=== PATIENT | female | born 1985 | race Asian ===

== ENCOUNTER 2016-10-29 20:00 | Inpatient (IN) | payer OTHER ==
[2016-10-29 21:26] LABS: BASOPHIL 0.6 % (0-2.0); EOSINOPHIL 0.8 % (0-4.5); MCH 28.9 pg (25.7-33.7); MCHC 33.7 g/dl (32.0-36.0); MEAN CELL VOLUME 85.9 fl (80-96); MEAN PLT VOLUME 9.7 fl (7.5-11.1); NEUTROPHILS 69.7 % (42.8-82.8); PLATELET COUNT 187 K/MM3 (134-434); RDW 14.3 % (11.6-15.6); WHITE BLOOD COUNT 10.5 K/mm3 (4.0-10.0)
[2016-10-29] MEDS ORDERED: BENZOCAINE 20% 57 GM BOTTLE TP PRN (21:41)
[2016-10-29] MEDS ORDERED: METHYLERGONOVINE MALEATE 0.2 MG/1 ML AMP IM PRN (21:41)
[2016-10-29] MEDS ORDERED: BENZOCAINE 28 GM HEMORRHOIDAL OINTMENT TP PRN (21:41)
[2016-10-29] MEDS ORDERED: BISACODYL 10 MG SUPP.RECT RC PRN (21:41)
[2016-10-29] MEDS ORDERED: WITCH HAZEL 50% (TUCKS) 40 PAD/JAR PAD TP PRN (21:41)
[2016-10-29] MEDS ORDERED: OXYTOCIN 20 UNITS in 0.9% NS 1,000 ML IV SCH (21:45)
--- NOTE | 2016-10-29 21:46 | HP ---
Admitting History and Physical - Admission Chief Complaint: labor pains History of Present Illness: 31 y/o at term returns with complaints of labor pains. 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: No: Alzheimer's, CVA, Dementia, Migraine, Multiple Sclerosis, Peripheral Neuropathy, Parkinson's, Seizure, Syncope, TIA, Vertigo, Other Cardiovascular: No: AFIB, Aneurysm, Aortic Insufficiency, Aortic Stenosis, CAD, CHF, Deep Vein Thrombosis, HTN, Hyperlipdemia, MS, Mitral Insufficiency, Mitral Stenosis, Murmur, Pulmonary Hypertension, Other Pulmonary: No: Asthma, Bronchitis, Cancer, COPD, O2 Dependent, Pneumonia, Previously Intubated, Pulmonary Embolus, Pulmonary Fibrosis, Sleep Apnea, Other Gastrointestinal: No: Ascites, Cancer, Constipation, Crohn's Disease, Diverticulitis, Diverticulosis, Esophageal Varices, Gastritis, GERD, GI Bleed, Hemorrhoids, Hiatal Hernia, Inflamatory Bowel Disease, Irritable Bowel Disease, Pancreatitis, Peptic Ulcer Disease, Ulcerative Colitis, Other Hepatobiliary: No: Cirrhosis, Cholelithiasis, Cholecystitis, Choledocholithiasis , Hepatitis A, Hepatitis B, Hepatitis C, Other Reproductive: No: Ectopic , Endometriosis, Fibroids, PID, Polycystic Ovary Syndrome, Postmenopausal, Other ...LMP: 10/05/15 Heme/Onc: No: Anemia, B12 Deficiency, Bleeding Disorder, Cancer, Current Chemotherapy, Current Radiation Therapy, Hemochromatosis, Hypercoaguable State, Myeloproliferative Synd, Sickle Cell Disease, Sickle Cell Trait, Thrombocytopenia, Other Infectious Disease: No: AIDS, C-Diff, Herpes Zoster, HIV, MRSA, STD's, Tuberculosis, VREF, Other Psych: No: Addictions, Anxiety, Bipolar, Depression, Panic, Psychosis, Schizophrenia, Other Rheumatology: No: Fibromyalgia, Gout, Lupus, Rheumatoid Arthritis, Sarcoidosis, Vasculitis, Other ENT: No: Allergic Rhinitis, Sinusitis, Other Endocrine: No: [place]'s Disease, [place]'s Disease, Diabetes Insipidus, Diabetes Mellitus, Hyperparathyroidism, Hyperthyroidism, Hypothyroidism, Osteopenia, SIADH, Other Dermatology: No: Basal Cell, Cellulitis, Eczema, Melanoma, Psoriasis, Squamous Cell, Other - Smoking History Smoking history: Never smoked Have you smoked in the past 12 months: No - Alcohol/Substance Use Hx Alcohol Use: No - Social 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 History of Recent Travel: No Home Medications - Allergies Allergies/Adverse Reactions: Allergies Allergy/AdvReac Type Severity Reaction Status Date / Time No Known Drug Allergies Allergy Verified 10/29/16 10:04 - Home Medications Home Medications: Ambulatory Orders Ferrous Sulfate [Feosol] 325 mg PO BID #60 tablet 09/21/16 Pnv95/Ferrous Fumarate/FA [ Vitamin Tablet] 1 each PO DAILY 09/21/16 Review of Systems - Review of Systems Constitutional: reports: No Symptoms Eyes: reports: No Symptoms HENT: reports: No Symptoms Neck: reports: No Symptoms Cardiovascular: reports: No Symptoms Respiratory: reports: No Symptoms Gastrointestinal: reports: No Symptoms Genitourinary: reports: No Symptoms Integumentary: reports: No Symptoms Neurological: reports: No Symptoms Endocrine: reports: No Symptoms Hematology/Lymphatic: reports: No Symptoms Psychiatric: reports: No Symptoms Physical Examination Constitutional: Yes: Well Nourished Eyes: Yes: WNL HENT: Yes: WNL Neck: Yes: WNL Cardiovascular: Yes: WNL Respiratory: Yes: WNL Gastrointestinal: Yes: WNL ...Rectal Exam: Yes: WNL Renal/: Yes: WNL Breast(s): Yes: WNL Musculoskeletal: Yes: WNL Extremities: Yes: WNL ...Motor Strength: WNL Psychiatric: Yes: WNL Labs: CBC, BMP 10/29/16 20:30 Assessment/Plan as above admit labs Imminent delivery
[2016-10-29 21:48] LABS: ANION GAP 10 (8-16); CALCIUM 9.2 mg/dL (8.5-10.1); CO2 20 mmol/L (21-32); CREATININE 0.6 mg/dL (0.55-1.02); GLUCOSE,RANDOM 70 mg/dL (74-106)
[2016-10-29] MEDS: ACETAMINOPHEN 325 MG TABLET (FP) PO PRN (21:50)
[2016-10-29] MEDS: IBUPROFEN 600 MG TABLET (FP) PO PRN (21:50)
[2016-10-29 21:54] LABS: INR 0.95 (0.82-1.09); PROTHROMBIN TIME (PATIENT) 10.4 SEC (9.98-11.88)
[2016-10-29 21:56] LABS: ACTIVATED PTT 29.4 SECONDS (26.9-34.4)
[2016-10-29 22:22] VITALS: BMI 18.9
[2016-10-30] MEDS: ACETAMINOPHEN 325 MG TABLET (FP) PO PRN ×3 (01:56→18:36)
[2016-10-30] MEDS: IBUPROFEN 600 MG TABLET (FP) PO PRN ×3 (01:57→18:36)
--- NOTE | 2016-10-30 05:33 | PN ---
Post Progress Note Post Day: 1 Type of Delivery: Vital Signs: Vital Signs Temperature 97.9 F 10/29/16 23:45 Pulse Rate 74 10/29/16 23:45 Respiratory Rate 18 10/29/16 23:45 Blood Pressure 115/70 10/29/16 23:45 O2 Sat by Pulse Oximetry (%) 99 10/29/16 22:30 Breast Exam: Yes: Soft Uterus: Yes: Fundus Firm Abdomen/GI: Yes: Abdomen soft Lochia: Yes: Rubra Lochia, amount: Small Perineum: Yes: Intact Activity: Ambulating - Labs Labs: CBC WBC 10.5 K/mm3 (4.0-10.0) H D 10/29/16 20:30 RBC 3.96 M/mm3 (3.60-5.2) 10/29/16 20:30 Hgb 11.5 GM/dL (10.7-15.3) D 10/29/16 20:30 Hct 34.0 % (32.4-45.2) 10/29/16 20:30 MCV 85.9 fl (80-96) 10/29/16 20:30 MCH 28.9 pg (25.7-33.7) 10/29/16 20:30 MCHC 33.7 g/dl (32.0-36.0) 10/29/16 20:30 RDW 14.3 % (11.6-15.6) 10/29/16 20:30 Plt Count 187 K/MM3 (134-434) 10/29/16 20:30 MPV 9.7 fl (7.5-11.1) 10/29/16 20:30 Neutrophils % 69.7 % (42.8-82.8) D 10/29/16 20:30 Lymphocytes % 22.1 % (8-40) D 10/29/16 20:30 Monocytes % 6.8 % (3.8-10.2) 10/29/16 20:30 Eosinophils % 0.8 % (0-4.5) D 10/29/16 20:30 Basophils % 0.6 % (0-2.0) 10/29/16 20:30 Assessment/Plan doing well no issues contine care
[2016-10-30 08:25] LABS: BASOPHIL 0.4 % (0-2.0); EOSINOPHIL 1.2 % (0-4.5); MCH 28.7 pg (25.7-33.7); MCHC 33.2 g/dl (32.0-36.0); MEAN CELL VOLUME 86.4 fl (80-96); MEAN PLT VOLUME 9.1 fl (7.5-11.1); NEUTROPHILS 70.5 % (42.8-82.8); PLATELET COUNT 141 K/MM3 (134-434); RDW 14.2 % (11.6-15.6); WHITE BLOOD COUNT 9.3 K/mm3 (4.0-10.0)
[2016-10-30] MEDS ORDERED: DIPHTH,PERTUSS(ACELL),TET 0.5 ML DISP.SYRIN IM ONE (10:00)
[2016-10-30] MEDS ORDERED: SENNOSIDES/DOCUSATE COMBO (SENNA PLUS) TABLET (UD) PO PRN (22:00)
--- NOTE | 2016-10-31 01:46 | PN ---
Post Progress Note - Subjective Subjective: declines exam Post Day: 2 Type of Delivery: Vital Signs: Vital Signs Temperature 97.4 F L 10/30/16 20:52 Pulse Rate 79 10/30/16 20:52 Respiratory Rate 18 10/30/16 20:52 Blood Pressure 100/62 10/30/16 20:52 O2 Sat by Pulse Oximetry (%) 99 10/29/16 22:30 Breast Exam: Yes: Soft Lochia, amount: Small Perineum: Yes: Intact - Labs Labs: CBC WBC 9.3 K/mm3 (4.0-10.0) 10/30/16 07:30 RBC 3.09 M/mm3 (3.60-5.2) L D 10/30/16 07:30 Hgb 8.9 GM/dL (10.7-15.3) L D 10/30/16 07:30 Hct 26.7 % (32.4-45.2) L D 10/30/16 07:30 MCV 86.4 fl (80-96) 10/30/16 07:30 MCH 28.7 pg (25.7-33.7) 10/30/16 07:30 MCHC 33.2 g/dl (32.0-36.0) 10/30/16 07:30 RDW 14.2 % (11.6-15.6) 10/30/16 07:30 Plt Count 141 K/MM3 (134-434) D 10/30/16 07:30 MPV 9.1 fl (7.5-11.1) 10/30/16 07:30 Neutrophils % 70.5 % (42.8-82.8) 10/30/16 07:30 Lymphocytes % 21.4 % (8-40) 10/30/16 07:30 Monocytes % 6.5 % (3.8-10.2) 10/30/16 07:30 Eosinophils % 1.2 % (0-4.5) 10/30/16 07:30 Basophils % 0.4 % (0-2.0) 10/30/16 07:30 Assessment/Plan continue care dc home today
[2016-10-31] MEDS: ACETAMINOPHEN 325 MG TABLET (FP) PO PRN (08:04)
[2016-10-31] MEDS: IBUPROFEN 600 MG TABLET (FP) PO PRN (08:05)
[2016-10-31 09:31] VITALS: BP 108/66; PULSE 73; TEMP 98
== END 2016-10-31 12:35 | disposition home or self-care (01) | DRG 560 ==
LOC: JLDR 20:00 → J3W 23:15
PROVIDERS: ADMIT Obstetrics & Gynecology; ATTEND Obstetrics & Gynecology
PROC: 10E0XZZ Delivery of Products of Conception, External Approach (ICD-10-PCS; principal; 2016-10-29)
DX: O80 Encounter for full-term uncomplicated delivery (principal); Z3A.38 38 weeks gestation of pregnancy; Z37.0 Single live birth
CPT/HCPCS: 36415; 59409; 80048; 85025; 85610; 85730; 86593; 86850; 86900; 86901; 90715

== ENCOUNTER 2018-02-23 22:23 | Emergency (ER) | payer OTHER ==
[2018-02-23 22:32] VITALS: BP 128/81; PULSE 66; TEMP 97.5; BMI 17.2
[2018-02-23 22:53] LABS: HCG,QUALITATIVE URINE Negative
[2018-02-23 22:55] LABS: URINE APPEARANCE Clear; URINE BILIRUBIN Negative (NEGATIVE); URINE COLOR Yellow; URINE GLUCOSE (UA) Negative (NEGATIVE); URINE KETONE Negative (NEGATIVE); URINE LEUK ESTERASE Negative (NEGATIVE); URINE NITRITE Negative (NEGATIVE); URINE PROTEIN Negative (NEGATIVE); URINE UROBILINOGEN 0.2 (0.2-1.0)
[2018-02-23] MEDS ORDERED: SODIUM CHLORIDE 0.9% 1000 ML INFUS.BAG IV ONE (22:59)
[2018-02-23] MEDS ORDERED: ACETAMINOPHEN 1000 MG/100 ML VIAL (NON FORMULARY) IVPB ONE (22:59)
[2018-02-23 23:17] LABS: BASO % 0.8 % (0-2.0); EOS % 5.6 % (0-4.5); HEMATOCRIT 35.8 % (32.4-45.2); HEMOGLOBIN 11.8 GM/dl (10.7-15.3); LYMPH % 43.8 % (8-40); MCH 28.6 pg (25.7-33.7); MEAN CELL VOLUME 86.5 fl (80-96); MEAN PLT VOLUME 8.6 fl (7.5-11.1); MONO % 8.3 % (3.8-10.2); NEUT % 41.5 % (42.8-82.8); PLATELET COUNT 246 K/MM3 (134-434); RBC 4.14 M/mm3 (3.60-5.2); RDW 17.9 % (11.6-15.6); WHITE BLOOD COUNT 6.3 K/mm3 (4.0-10.8)
[2018-02-23 23:25] LABS: URINE BACTERIA 1+ /hpf (NEGATIVE); URINE WBC 0-2 (0-5)
[2018-02-23] MEDS ORDERED: ACETAMINOPHEN INJECTION 100 ML IVPB ONE (23:30)
[2018-02-23 23:31] LABS: ALBUMIN 4.1 g/dl (3.5-5.0); ALK PHOS 38 U/L (32-92); ANION GAP 5 MMOL/L (8-16); BILIRUBIN,TOTAL 0.4 mg/dl (0.2-1.0); BLOOD UREA NITROGEN 15 mg/dl (7-18); CALCIUM 9.3 mg/dl (8.4-10.2); CHLORIDE 104 mmol/L (98-107); CO2 26 mmol/L (22-28); CREATININE 0.6 mg/dl (0.6-1.3); GLUCOSE,RANDOM 101 mg/dl (74-106); POTASSIUM 3.6 mmol/L (3.5-5.1); SGOT/AST 23 U/L (10-42); SGPT/ALT 29 U/L (10-40); SODIUM 135 mmol/L (136-145); TOT PROT 7.9 g/dl (6.4-8.3)
--- NOTE | 2018-02-23 23:41 | PDOC ---
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 Patient describes her abdominal pain as intermittent for the past 6 years radiating to her mid- back. Patient endorses associated nausea, dizziness, subjective fevers, and body aches. Patient is sexually active without protection, with one partner. She denies recent diarrhea or constipation. She denies recent dysuria or hematuria. She denies recent chest pain or shortness of breath. Allergies: NKA Past surgical history: None reported. Social history: Nonsmoker. Denies EtOH use and recreational drug use. LMP: 03/16 <Rafael Hughes - Last Filed: 02/23/18 23:56> <Donnie Gould - Last Filed: 02/24/18 01:54> - General Chief Complaint: Lightheaded Stated Complaint: PAIN, DIZZINESS Time Seen by Provider: 02/23/18 22:28 Past History <Rafael Hughes - Last Filed: 02/23/18 23:56> - Past Medical History Asthma: No Cancer: No Cardiac Disorders: No COPD: No Diabetes: No HTN: No Seizures: No Thyroid Disease: No - Reproductive History (#): 6 Para: 4 Spontaneous : 1 - Suicide/Smoking/Psychosocial Hx Smoking History: Never smoked Have you smoked in the past 12 months: No Hx Alcohol Use: No Drug/Substance Use Hx: No Substance Use Type: None Hx Substance Use Treatment: No <Donnie Gould - Last Filed: 02/24/18 01:54> - Past Medical History Allergies/Adverse Reactions: Allergies Allergy/AdvReac Type Severity Reaction Status Date / Time No Known Drug Allergies Allergy Verified 11/21/17 21:15 Home Medications: Ambulatory Orders NK [No Known Home Medication] 02/23/18 Review of Systems - Review of Systems Able to Perform ROS?: Yes Comments:: 02/23/18 23:53 ROS: A complete review of 10 out of 10 review of systems is taken and is negative apart from what is previously mentioned below and in the HPI. <Rafael Hughes - Last Filed: 02/23/18 23:56> *Physical Exam - Vital Signs Last Vital Signs Temp Pulse Resp BP Pulse Ox 97.5 F L 66 16 128/81 100 02/23/18 22:29 02/23/18 22:29 02/23/18 22:29 02/23/18 22:29 02/23/18 22:29 - Physical Exam Comments: 02/23/18 23:54 Vitals: Triage vital signs reviewed General Appearance: No acute distress, well nourished, well developed Head: Atraumatic Neck: Supple; No nuchal rigidity Chest Wall: Nontender Cardiac: Regular rate and rhythm, no murmurs, no rubs, no gallops Lungs: Clear to auscultation bilateral, good air movement bilaterally +Abdomen: Left CVA tenderness. Left quadrant abdominal tenderness. Soft, nondistended, normal bowel sounds +Genitourinary: Mild left sided adnexal tenderness. Rectal: Exam deferred Extremities: Full range of motion to all extremities, no cyanosis, clubbing, or edema Skin: Warm and dry, no rashes or lesions, no rash, no petechiae Neuro: AOX3; Cranial Nerves 2-12 grossly intact, Strength intact to all extremities, Sensation intact to all extremities, gait normal Psych: Normal mood, normal affect <Rafael Hughes - Last Filed: 02/23/18 23:56> - Vital Signs Last Vital Signs Temp Pulse Resp BP Pulse Ox 97.5 F L 66 16 128/81 100 02/23/18 22:29 02/23/18 22:29 02/23/18 22:29 02/23/18 22:29 02/23/18 22:29 <Donnie Gould - Last Filed: 02/24/18 01:54> Moderate Sedation - Procedure Monitoring Vital Signs: Procedure Monitoring Vital Signs Temperature 97.5 F L 02/23/18 22:29 Pulse Rate 66 02/23/18 22:29 Respiratory Rate 16 02/23/18 22:29 Blood Pressure 128/81 02/23/18 22:29 O2 Sat by Pulse Oximetry (%) 100 02/23/18 22:29 <Rafael Hughes - Last Filed: 02/23/18 23:56> - Procedure Monitoring Vital Signs: Procedure Monitoring Vital Signs Temperature 97.5 F L 02/23/18 22:29 Pulse Rate 66 02/23/18 22:29 Respiratory Rate 16 02/23/18 22:29 Blood Pressure 128/81 02/23/18 22:29 O2 Sat by Pulse Oximetry (%) 100 02/23/18 22:29 <Donnie Gould - Last Filed: 02/24/18 01:54> ED Treatment Course - LABORATORY CBC & Chemistry Diagram: 02/23/18 23:05 02/23/18 23:05 - ADDITIONAL ORDERS Additional order review: Laboratory Results 02/23/18 02/23/18 23:05 22:45 Sodium 135 L Potassium 3.6 Chloride 104 Carbon Dioxide 26 Anion Gap 5 L BUN 15 Creatinine 0.6 Creat Clearance w eGFR > 60 Random Glucose 101 Calcium 9.3 Total Bilirubin 0.4 AST 23 D ALT 29 Alkaline Phosphatase 38 Total Protein 7.9 Albumin 4.1 Urine Color Yellow Urine Appearance Clear Urine pH 6.0 Ur Specific [place] >= 1.030 Urine Protein Negative Urine Glucose (UA) Negative Urine Ketones Negative Urine Blood Trace-intact H Urine Nitrite Negative Urine Bilirubin Negative Urine Urobilinogen 0.2 Ur Leukocyte Esterase Negative Urine RBC 2-5 Urine WBC 0-2 Urine Bacteria 1+ Urine HCG, Qual Negative 02/23/18 23:05 RBC 4.14 MCV 86.5 MCHC 33.0 RDW 17.9 H D MPV 8.6 Neutrophils % 41.5 L Lymphocytes % 43.8 H Monocytes % 8.3 Eosinophils % 5.6 H Basophils % 0.8 - Medications Given in the ED: ED Medications Discontinued Medications Generic Name Dose Route Start Last Admin Trade Name Jolie PRN Reason Stop Dose Admin Acetaminophen 1,000 mg 02/23/18 22:59 02/23/18 23:35 Ofirmev Injection - IVPB 02/23/18 23:00 1,000 mg ONCE ONE Administration Sodium Chloride 1,000 ml 02/23/18 22:59 02/23/18 23:09 Normal Saline - IV 02/23/18 23:00 1,000 ml ONCE ONE Administration <Rafael Hughes - Last Filed: 02/23/18 23:56> - LABORATORY CBC & Chemistry Diagram: 02/23/18 23:05 02/23/18 23:05 - ADDITIONAL ORDERS Additional order review: Laboratory Results 02/23/18 02/23/18 23:05 22:45 Sodium 135 L Potassium 3.6 Chloride 104 Carbon Dioxide 26 Anion Gap 5 L BUN 15 Creatinine 0.6 Creat Clearance w eGFR > 60 Random Glucose 101 Calcium 9.3 Total Bilirubin 0.4 AST 23 D ALT 29 Alkaline Phosphatase 38 Total Protein 7.9 Albumin 4.1 Urine Color Yellow Urine Appearance Clear Urine pH 6.0 Ur Specific [place] >= 1.030 Urine Protein Negative Urine Glucose (UA) Negative Urine Ketones Negative Urine Blood Trace-intact H Urine Nitrite Negative Urine Bilirubin Negative Urine Urobilinogen 0.2 Ur Leukocyte Esterase Negative Urine RBC 2-5 Urine WBC 0-2 Urine Bacteria 1+ Urine HCG, Qual Negative 02/23/18 23:05 RBC 4.14 MCV 86.5 MCHC 33.0 RDW 17.9 H D MPV 8.6 Neutrophils % 41.5 L Lymphocytes % 43.8 H Monocytes % 8.3 Eosinophils % 5.6 H Basophils % 0.8 - Medications Given in the ED: ED Medications Discontinued Medications Generic Name Dose Route Start Last Admin Trade Name Freq PRN Reason Stop Dose Admin Acetaminophen 1,000 mg 02/23/18 22:59 02/23/18 23:35 Ofirmev Injection - IVPB 02/23/18 23:00 1,000 mg ONCE ONE Administration Sodium Chloride 1,000 ml 02/23/18 22:59 02/23/18 23:09 Normal Saline - IV 02/23/18 23:00 1,000 ml ONCE ONE Administration <Donnie Gould - Last Filed: 02/24/18 01:54> Medical Decision Making - Medical Decision Making 02/23/18 23:52 32 year old female, with a significant past medical history of kidney stones, who presents to the emergency department with, abdominal pain, back pain, urinary frequency, and abnormal pink discharge. 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: No right or left urinary tract stone or obstruction no right or left hydronephrosis calcifications in the pelvis bilaterally but isn't felt to be phleboliths or related to the ovaries there is a 2.6 cm left ovarian cyst trace fluid in the pelvis cul-de-sac physiologic versus small ruptured cyst no bowel obstruction or inflammation no definitive colitis or diverticulitis old about was poorly evaluated because of patient's lack of neck neuro intraperitoneal fatty contrast similarly the appendix is not visualized <Donnie Gould - Last Filed: 02/24/18 01:54> *DC/Admit/Observation/Transfer - Attestations Scribe Attestion: 02/23/18 23:56 Documentation prepared by Rafael Hughes, acting as medical records assistant for Donnie Gould MD. <Rafael Hughes - Last Filed: 02/23/18 23:56> <Donnie Gould - Last Filed: 02/24/18 01:54> Diagnosis at time of Disposition: Back pain Qualifiers: Back pain location: back pain in other location Chronicity: chronic Qualified Code(s): M54.9 - Dorsalgia, unspecified - Discharge Dispostion Condition at time of disposition: Stable - Referrals Referrals: [facility] [place] [Provider Group] - Patient Instructions Printed Discharge Instructions: DI for Low Back Pain Additional Instructions: Drink plenty of fluids. Alternate [id number] Tylenol Motrin as directed on package as needed for pain. Follow-up with her primary care provider on Monday. Return to the emergency department for any severe worsening symptoms or for any concerns. - Post Discharge Activity
== END 2018-02-24 01:54 | disposition home or self-care (01) ==
LOC: FER 22:23
PROC: 3E0337Z Introduction of Electrolytic and Water Balance Substance into Peripheral Vein, Percutaneous Approach (ICD-10-PCS; principal; 2018-02-23)
PROC: 3E033NZ Introduction of Analgesics, Hypnotics, Sedatives into Peripheral Vein, Percutaneous Approach (ICD-10-PCS; 2018-02-23)
DX: M54.9 Dorsalgia, unspecified (principal)
CPT/HCPCS: 36415; 74176-TC; 80053; 81003; 81015; 84703; 85025; 87491; 87591; 87661; 96374; 99281-25; J0131; J7030

== ENCOUNTER 2018-07-13 21:53 | Emergency (ER) | payer OTHER ==
[2018-07-13 22:01] VITALS: BP 122/82; PULSE 66; TEMP 97.9; BMI 17.2
[2018-07-13] MEDS ORDERED: METOCLOPRAMIDE HCL 10 MG TABLET (FP) PO ONE ×2 (22:23→22:27)
[2018-07-13] MEDS ORDERED: KETOROLAC TROMETHAMINE 60 MG/2 ML VIAL IM ONE (22:23)
[2018-07-13] MEDS ORDERED: KETOROLAC TROMETHAMINE 60 MG/2 ML VIAL ONE (22:28)
--- NOTE | 2018-07-13 22:44 | PDOC ---
History of Present Illness - General Chief Complaint: Headache Stated Complaint: HEADACHE Time Seen by Provider: 07/13/18 21:54 History Source: Patient Exam Limitations: No Limitations - History of Present Illness Initial Comments: 07/13/18 22:47 This is a 33-year-old female who comes in complaining of a headache times this afternoon. Patient has had a lot of stress in her life this week as she has 5 children and they have been off for the . Addition to that patient said she normally gets a headache around her 2 Tylenol with minimal improvement so comes in for evaluation. Patient does have a history of migraine headaches this is her typical migraine little little worse than usual Allergies: as per nursing notes Past Medical History: none Social history: Lives with family. No smoking. No alcohol. No illicit drugs. Surgical history: None General: No fevers or chills, no weakness, no weight loss HEENT: No change in vision. No sore throat,. No ear pain CardioVascular: no chest discomfort. No shortness of breath Respiratory:No cough, or wheezing. Gastrointestinal: no nausea, vomiting, diarrhea or constipation, No rectal bleeding Genitourinary: No dysuria, hematuria, or frequency Musculoskeletal: No joint or muscle pain or swelling Neurologic: No headache, vertigo, dizziness or loss of consciousness Psychiatric: nor depression Skin: No rashes or easy bruising Endocrine: no increased thirst or abnormal weight change Allergic: no skin or latex allergy All other systems reviewed and normal GENERAL: The patient is awake, alert, and fully oriented, in no acute distress. HEAD: Normal with no signs of trauma., no Neck there is no neck stiffness or nuchal rigidity or meningeal signs, there is noted some tension in the lateral neck muscles There is no tenderness on palpation of the sinuses EYES: Pupils equal, round and reactive to light, extraocular movements intact, sclera anicteric, conjunctiva clear. EXTREMITIES:atraumatic, Normal range of motion, no edema. NEUROLOGICAL: Normal speech, normal gait. PSYCH: Normal mood, normal affect. SKIN: Warm, Dry, normal turgor, no rashes or lesions noted. Assessment and plan patient feels better after Toradol and Reglan patient discharged home told to follow-up with a neurologist if symptoms persist Past History - Past Medical History Allergies/Adverse Reactions: Allergies Allergy/AdvReac Type Severity Reaction Status Date / Time No Known Drug Allergies Allergy Verified 11/21/17 21:15 Home Medications: Ambulatory Orders Acetaminophen [Tylenol] 650 mg PO ONCE 07/13/18 Asthma: No Cancer: No Cardiac Disorders: No COPD: No Diabetes: No HTN: No Seizures: No Thyroid Disease: No - Reproductive History (#): 6 Para: 4 Spontaneous : 1 - Suicide/Smoking/Psychosocial Hx Smoking History: Never smoked Have you smoked in the past 12 months: No Hx Alcohol Use: No Drug/Substance Use Hx: No Substance Use Type: None Hx Substance Use Treatment: No *Physical Exam - Vital Signs Last Vital Signs Temp Pulse Resp BP Pulse Ox 97.9 F 66 16 122/82 100 07/13/18 21:55 07/13/18 21:55 07/13/18 21:55 07/13/18 21:55 07/13/18 21:55 *DC/Admit/Observation/Transfer Diagnosis at time of Disposition: Migraine headache - Discharge Dispostion Disposition: HOME Condition at time of disposition: Stable Decision to Admit order: No - Referrals Referrals: Halina Juarez MD [Primary Care Provider] - - Patient Instructions Additional Instructions: U can take ibuprofen 600 mg as often as 3 times a day if needed for additional pain. Follow-up with a neurologist if not improved by Monday. Return to the emergency department immediately with ANY new, persistent or worsening symptoms. Continue any medications as previously prescribed by your physician. You should follow up with your primary doctor as soon as possible regarding today's emergency department visit. . Please make sure your doctor reviews the results of your emergency evaluation. Thank you for coming to the Emergency Department today for your care. It was a pleasure to see you today. Please note that your evaluation is INCOMPLETE until you follow-up with your doctor. - Post Discharge Activity
== END 2018-07-13 23:11 | disposition home or self-care (01) ==
LOC: FER 21:53
PROC: 3E0233Z Introduction of Anti-inflammatory into Muscle, Percutaneous Approach (ICD-10-PCS; principal; 2018-07-13)
DX: G43.909 Migraine, unspecified, not intractable, without status migrainosus (principal)
CPT/HCPCS: 99281-25

== ENCOUNTER 2019-03-22 18:00 | Emergency (ER) | payer OTHER ==
[2019-03-22 19:26] VITALS: BP 118/72; PULSE 76; TEMP 98; BMI 18.8
[2019-03-22] MEDS ORDERED: SODIUM CHLORIDE 1,000 ML IV STA (20:24)
[2019-03-22] MEDS ORDERED: KETOROLAC TROMETHAMINE 30 MG/1 ML VIAL IVPUSH ONE (20:24)
[2019-03-22] MEDS ORDERED: KETOROLAC TROMETHAMINE 30 MG/1 ML VIAL ONE (20:31)
[2019-03-22 20:58] LABS: ADD RBC MORPHOLOGY YES; BASO % 0.6 % (0-2.0); EOS % 6.1 % (0-4.5); HEMATOCRIT 26.2 % (32.4-45.2); LYMPH % 39.6 % (8-40); MCH 21.3 pg (25.7-33.7); MCHC 30.5 g/dl (32.0-36.0); MEAN CELL VOLUME 69.7 fl (80-96); MEAN PLT VOLUME 8.2 fl (7.5-11.1); MONO % 8.3 % (3.8-10.2); NEUT % 45.4 % (42.8-82.8); PLATELET COUNT 310 K/MM3 (134-434); RBC 3.75 M/mm3 (3.60-5.2); RDW 18.1 % (11.6-15.6); WHITE BLOOD COUNT 6.1 K/mm3 (4.0-10.8)
[2019-03-22 21:03] LABS: ALBUMIN 3.8 g/dl (3.4-5.0); BILIRUBIN,TOTAL 0.3 mg/dl (0.2-1); CALCIUM 9.2 mg/dl (8.5-10); CREATININE 0.5 mg/dl (0.55-1.3); POTASSIUM 3.4 mmol/L (3.5-5.1); TOT PROT 7.2 g/dl (6.4-8.2)
[2019-03-22 21:06] LABS: ANISOCYTOSIS 2+; PLATELET ESTIMATE ADEQUATE
--- NOTE | 2019-03-22 23:11 | PDOC ---
Documentation entered by Rafael Hughes SCRIBE, acting as scribe for Kiara Goodman MD. Kiara Goodman MD: This documentation has been prepared by the Saul naik Nirvannie, SCRIBE, under my direction and personally reviewed by me in its entirety. I confirm that the documentation accurately reflects all work, treatment, procedures, and medical decision making performed by me. History of Present Illness - General Chief Complaint: Pain Stated Complaint: BACK, ABD PAIN, NAUSEA FOR A LONG TIME Time Seen by Provider: 03/22/19 19:11 History Source: Patient, Family - History of Present Illness Initial Comments: 03/22/19 20:21 The patient is a 33 year old Kinyarwanda-speaking female with no significant past medical history, who presents to the emergency department with bilateral flank and abdominal pain. As per patient, her flank pain is worsened when urinating. The abdominal pain is localized to the epigastric and pelvic region is worsened when eating with associated nausea without emesis occurring episodically every 30 minutes. She notes similar symptoms in the past following her menstrual cycle (LMP 03/20). While in the ED, patient only complains of pelvic and right upper extremity pain. History is limited secondary to patients language barrier. She denies any abnormal vaginal bleeding. She denies recent fevers, chills, headache or dizziness. She denies recent vomiting, diarrhea or constipation. She denies recent dysuria, frequency, urgency or hematuria. She denies recent chest pain or shortness of breath. Patient speaks only Kinyarwanda and her daughter is interpreting for her. Allergies: NKDA Past surgical history: None reported. Social history: Nonsmoker. Denies EtOH use and recreational drug use. Past History - Past Medical History Allergies/Adverse Reactions: Allergies Allergy/AdvReac Type Severity Reaction Status Date / Time No Known Drug Allergies Allergy Verified 11/21/17 21:15 Home Medications: Ambulatory Orders Acetaminophen [Tylenol] 650 mg PO ONCE 07/13/18 Asthma: No Cancer: No Cardiac Disorders: No COPD: No Diabetes: No HTN: No Seizures: No Thyroid Disease: No - Reproductive History Is Patient Now?: No (#): 6 Para: 4 Spontaneous : 1 - Psycho Social/Smoking Cessation Hx Smoking History: Never smoked Have you smoked in the past 12 months: No Hx Alcohol Use: No Drug/Substance Use Hx: No Substance Use Type: None Hx Substance Use Treatment: No Review of Systems - Review of Systems Able to Perform ROS?: Yes Comments:: 03/22/19 20:22 CONSTITUTIONAL: Absent: fever, chills, diaphoresis, generalized weakness, malaise, loss of appetite HEENT: Absent: rhinorrhea, nasal congestion, throat pain, throat swelling, difficulty swallowing, mouth swelling, ear pain, eye pain, visual Changes CARDIOVASCULAR: Absent: chest pain, syncope, palpitations, irregular heart rate, lightheadedness , peripheral edema RESPIRATORY: Absent: cough, shortness of breath, dyspnea with exertion, orthopnea, wheezing, stridor, hemoptysis GASTROINTESTINAL: Present: Abdominal pain, nausea. Absent: abdominal distension, vomiting, diarrhea, constipation, melena, hematochezia GENITOURINARY: Present: Bilateral flank pain. Absent: dysuria, frequency, urgency, hesitancy, hematuria, genital pain MUSCULOSKELETAL: Absent: myalgia, arthralgia, joint swelling SKIN: Absent: rash, itching, pallor HEMATOLOGIC/IMMUNOLOGIC: Absent: easy bleeding, easy bruising, lymphadenopathy, frequent infections ENDOCRINE: Absent: unexplained weight gain, unexplained weight loss, heat intolerance, cold intolerance NEUROLOGIC: Absent: headache, focal weakness or paresthesias, dizziness, unsteady gait, seizure, mental status changes, bladder or bowel incontinence PSYCHIATRIC: Absent: anxiety, depression, suicidal or homicidal ideation, hallucinations. All Other Systems: Reviewed and Negative *Physical Exam - Vital Signs Last Vital Signs Temp Pulse Resp BP Pulse Ox 98.0 F 76 16 118/72 100 03/22/19 18:35 03/22/19 18:35 03/22/19 18:35 03/22/19 18:35 03/22/19 18:35 - Physical Exam 03/22/19 20:22 GENERAL: The patient is awake, alert, and fully oriented, in no acute distress. HEAD: Normal with no signs of trauma. EYES: Pupils equal, round and reactive to light, extraocular movements intact, sclera anicteric, conjunctiva clear with no pallor. ENT: Ears normal, nares patent, oropharynx clear without exudates. Moist mucous membranes. NECK: Normal range of motion, supple without lymphadenopathy, JVD, or masses. LUNGS: Breath sounds equal, clear to auscultation bilaterally. No wheeze/ crackles. HEART: Regular rate and rhythm, normal S1 and S2 without murmur or rub. ABDOMEN: +Mild suprapubic tenderness. Soft/nondistended. BS wnl. No guarding or rebound. No palpable masses. No hepatosplenomegaly. EXTREMITIES: Normal range of motion, no edema. No clubbing or cyanosis. No cords, erythema, or tenderness. NEUROLOGICAL: Cranial nerves II through XII grossly intact. Normal speech, normal gait. PSYCH: Normal mood, normal affect. SKIN: Warm, Dry, normal turgor, no rashes or lesions noted. ED Treatment Course - LABORATORY CBC & Chemistry Diagram: 03/22/19 20:40 03/22/19 20:40 - ADDITIONAL ORDERS Additional order review: Laboratory Results 03/22/19 03/22/19 03/22/19 20:40 20:05 20:05 Sodium 137 Potassium 3.4 L Chloride 107 Carbon Dioxide 23 Anion Gap 7 L BUN 16.0 Creatinine 0.5 L Est GFR (CKD-EPI)AfAm 149.47 Est GFR (CKD-EPI)NonAf 128.97 Random Glucose 128 H Calcium 9.2 Total Bilirubin 0.3 AST 17 ALT 16 Alkaline Phosphatase 28 L Total Protein 7.2 Albumin 3.8 Urine Color Yellow Urine Appearance Clear Urine pH 6.0 Urine Protein Negative Urine Glucose (UA) Negative Urine Ketones Negative Urine Blood Negative Urine Nitrite Negative Urine Bilirubin Negative Urine Urobilinogen 0.2 Ur Leukocyte Esterase Negative Urine HCG, Qual Negative 03/22/19 20:40 RBC 3.75 MCV 69.7 L MCHC 30.5 L RDW 18.1 H MPV 8.2 Neutrophils % 45.4 Lymphocytes % 39.6 Monocytes % 8.3 Eosinophils % 6.1 H Basophils % 0.6 - Medications Given in the ED: ED Medications Discontinued Medications Generic Name Dose Route Start Last Admin Trade Name Freq PRN Reason Stop Dose Admin Sodium Chloride 1,000 mls @ 1,000 mls/hr 03/22/19 20:24 03/22/19 20:40 Normal Saline - IV 03/22/19 21:23 1,000 mls/hr ASDIR STA Administration Ketorolac Tromethamine 30 mg 03/22/19 20:24 03/22/19 20:43 Toradol Injection - IVPUSH 03/22/19 20:25 30 mg ONCE ONE Administration ED Progress Note - Progress Note Progress Note: As noted above, this 33-year-old woman without serious past medical history presents with nonspecific intermittent abdominal discomfort; she does admit recent burning with urination. Unclear whether she has had previous history of UTI. Exam as noted with mild suprapubic tenderness. No other significant findings. Urinalysis is normal and PGU was negative. CBC significant for mild anemia (8 Hgb/26 HCT) with microcytic/hypochromic cells. She also has moderate prerenal azotemia without other significant findings on her chemistry profile. Results discussed with the patient (through interpretation of her daughter). Patient has a long history of iron deficiency anemia. She states that she does not take her iron supplementation because she has gastric discomfort while taking the supplementation. The patient called her on the phone and results of work-up discussed with him. He reiterated that she does not take her iron supplementation because of stomach irritation. Foods with high iron content were discussed with him and list will be sent with the patient when she is discharged. Patient should drink plenty of fluids to avoid dehydration and should follow-up with her general medical doctor (Dr. Juarez) within the next few days. She should return to the ER if she has more severe, persistent abdominal pain or develops fever/vomiting. Discharge - Discharge Information Problems reviewed: Yes Clinical Impression/Diagnosis: Anemia Qualifiers: Anemia type: iron deficiency Iron deficiency anemia type: unspecified iron deficiency Qualified Code(s): D50.9 - Iron deficiency anemia, unspecified Condition: Stable Disposition: HOME - Follow up/Referral Referrals: Halina Juarez MD [Staff Physician] - 1 week - Patient Discharge Instructions Patient Printed Discharge Instructions: Good Food Sources of Iron Additional Instructions: Eat iron rich food until you see your doctor Follow-up with within 5 days Return to ER if you have worsening symptoms - Post Discharge Activity
== END 2019-03-22 21:48 | disposition home or self-care (01) ==
LOC: FER 18:00
PROC: 3E0333Z Introduction of Anti-inflammatory into Peripheral Vein, Percutaneous Approach (ICD-10-PCS; principal; 2019-03-22)
PROC: 3E0337Z Introduction of Electrolytic and Water Balance Substance into Peripheral Vein, Percutaneous Approach (ICD-10-PCS; 2019-03-22)
DX: D50.9 Iron deficiency anemia, unspecified (principal)
CPT/HCPCS: 36415; 80053; 81003; 84703; 85025; 96372; 96374; 99284-25; J7030

== ENCOUNTER 2019-03-28 00:37 | Emergency (ER) | payer OTHER ==
--- NOTE | 2019-03-28 00:39 | PDOC ---
History of Present Illness - General Chief Complaint: Pain, Acute Stated Complaint: LT ARM PAIN - History of Present Illness Initial Comments: This 34-year-old woman with a history of iron deficiency anemia, seen here 5 days ago and recurrence of anemia diagnosed presents with 1 day history of left arm pain. 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 After being seen here, the patient was seen by her PMD () 2 days ago. Because of the patient's history of intolerance of oral iron supplementation ( gastrointestinal discomfort), he referred her to a acid changer whom she saw yesterday. Arrangements are being made for the patient to receive iron infusion but according to the patient's , the infusions will likely not start for several weeks. Meanwhile, patient developed left arm/shoulder pain today. Pain is worse with movement of the shoulder. She denies overuse or trauma to the area. She has been having fatigue, lightheadedness and dyspnea on exertion for several weeks, similar to symptoms with previous episodes of anemia. Patient denies chest or abdominal pain. She has not had bloody or black stools. Past History - Past Medical History Allergies/Adverse Reactions: Allergies Allergy/AdvReac Type Severity Reaction Status Date / Time No Known Drug Allergies Allergy Verified 11/21/17 21:15 Home Medications: Ambulatory Orders Ferrous Sulfate 5 ml PO Q2D #60 ml 03/28/19 Anemia: Yes Asthma: No Cancer: No Cardiac Disorders: No COPD: No Diabetes: No HTN: No Seizures: No Thyroid Disease: No - Reproductive History (#): 6 Para: 4 Spontaneous : 1 - Psycho Social/Smoking Cessation Hx Smoking History: Never smoked Have you smoked in the past 12 months: No Hx Alcohol Use: No Drug/Substance Use Hx: No Substance Use Type: None Hx Substance Use Treatment: No Review of Systems - Review of Systems Able to Perform ROS?: Yes Comments:: 12 point review of systems is negative except for what is noted in the history of present illness *Physical Exam - Physical Exam GENERAL: Adult female, alert and oriented x3, in no acute distress HEAD: Normal with no signs of trauma. EYES: PERRLA, EOMI, sclera anicteric, conjunctiva clear/pink. ENT: Ears normal, nares patent, oropharynx clear without exudates. Dry mucous membranes. NECK: Normal range of motion, supple without lymphadenopathy, JVD, or masses. LUNGS: Breath sounds equal, clear to auscultation bilaterally. No wheezes, and no crackles. HEART:Regular rate and rhythm, normal S1 and S2 without murmur, rub or gallop. ABDOMEN:.normal bowel sounds No guarding,tenderness or rebound.No masses No distention. EXTREMITIES: Left upper extremity-mild tenderness to palpation of anterior and superior aspect of the shoulder No edema/deformity noted. Pain is reproduced with abduction and elevation of left arm Remainder of the extremity exam is normal NEUROLOGICAL: Cranial nerves II through XII grossly intact. Normal speech. No focal neurological deficits. SKIN: Warm, Dry, normal turgor, no rashes or lesions noted. Medical Decision Making - Medical Decision Making This 35-year-old woman, seen here 5 days ago with work-up revealing mild to moderate anemia (hemoglobin 8/hematocrit 26). She has a previous history of iron deficiency anemia with similar level of anemia seen on lab values here 2 years ago. The patient has a history of significant intolerance to oral supplementation with has been describing her generally being noncompliant with iron supplements after taking them for just a few days. Exam as noted Although exam suggests that her left shoulder pain is likely of musculoskeletal etiology, because of her ongoing anemia, twelve-lead electrocardiogram was performed to rule out evidence of ongoing myocardial ischemia: Preliminary interpretation by me-normal sinus rhythm at 86/min, intervals, axis , waveforms are all normal. No evidence of ongoing acute ST or T wave abnormalities. No evidence of acute cardiac arrhythmia. Although the patient will likely be having iron infusion started within the next few weeks, since she is having persistent shortness of breath, fatigue and lightheadedness, attempt at low-dose supplementation is warranted until infusions are begun. Prescription for ferrous sulfate elixir (220 mg / 5 mL), to be taken in the morning in a small amount of orange juice 30 minutes before breakfast every other day, sent to her pharmacy. In the meantime, she should continue eating an iron rich diet as suggested on discharge from here 5 days ago ( states that the patient has been eating meat daily and vegetables containing large amounts of iron has also been part of her diet). She should return to the emergency room if she has persistent chest or abdominal pain, severe shortness of breath, severe lightheadedness. Otherwise, she should follow-up with her PMD and with her acid changer Discharge - Discharge Information Problems reviewed: Yes Clinical Impression/Diagnosis: Iron deficiency anemia Qualifiers: Iron deficiency anemia type: unspecified iron deficiency Qualified Code(s): D50.9 - Iron deficiency anemia, unspecified Condition: Stable Disposition: HOME - Additional Discharge Information Prescriptions: Ferrous Sulfate 5 ml PO Q2D #60 ml - Follow up/Referral - Patient Discharge Instructions Patient Printed Discharge Instructions: DI for Iron Deficiency Anemia-Adult Additional Instructions: Ferrous sulfate elixir 1 teaspoon in 1/2 glass of orange juice 30 minutes before breakfast every other day Can increase dose up to 2 teaspoons every day Return to ER if you have extreme shortness of breath, weakness, chest or abdominal pain, bloody or black stools Follow-up with and with acid changer for iron infusion as previously planned - Post Discharge Activity
[2019-03-28 00:43] VITALS: BP 128/84; PULSE 86; TEMP 97; BMI 18.6
--- NOTE | 2019-03-28 11:53 | EKG ---
Test Reason : Blood Pressure : / mmHG Vent. Rate : 076 BPM Atrial Rate : 076 BPM P-R Int : 132 ms QRS Dur : 096 ms QT Int : 378 ms P-R-T Axes : 046 059 043 degrees QTc Int : 425 ms NORMAL SINUS RHYTHM NORMAL ECG NO PREVIOUS ECGS AVAILABLE Confirmed by NARGIS AHUJA MD ([id number]) on 03/28/2019 11:53:07 AM Referred By: Confirmed By:NARGIS AHUJA MD
== END 2019-03-28 01:24 | disposition home or self-care (01) ==
LOC: FER 00:37
DX: D50.9 Iron deficiency anemia, unspecified (principal)
CPT/HCPCS: 93005; 99282-25

== ENCOUNTER 2019-04-29 23:57 | Emergency (ER) | payer OTHER ==
--- NOTE | 2019-04-30 00:07 | PDOC ---
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 similar symptoms once before; improved with IVF and nsaids Timing/Duration: reports: intermittent Quality: reports: moderate Abdominal Pain Onset Location: reports: LLQ, generalized abdomen Pain Radiation: reports: no radiation Activities at Onset: reports: no specific activity Treatment Prior to Arrive: worse with: analgesics Aggravating Factors: improves with: None Past History - Past Medical History Allergies/Adverse Reactions: Allergies Allergy/AdvReac Type Severity Reaction Status Date / Time No Known Drug Allergies Allergy Verified 04/30/19 00:02 Home Medications: Ambulatory Orders Naproxen 500 mg PO BID PRN #14 tablet 04/30/19 Anemia: Yes Asthma: No Cancer: No Cardiac Disorders: No COPD: No Diabetes: No HTN: No Seizures: No Thyroid Disease: No - Reproductive History (#): 6 Para: 4 Spontaneous : 1 - Psycho Social/Smoking Cessation Hx Smoking History: Never smoked Have you smoked in the past 12 months: No Hx Alcohol Use: No Drug/Substance Use Hx: No Substance Use Type: None Hx Substance Use Treatment: No Review of Systems - Review of Systems Able to Perform ROS?: Yes All Other Systems: Reviewed and Negative *Physical Exam - Physical Exam General Appearance: Yes: Nourished, Appropriately Dressed HEENT: positive: Normal Voice Respiratory/Chest: positive: Lungs Clear Gastrointestinal/Abdominal: positive: Normal Bowel Sounds Lymphatic: negative: Adenopathy Musculoskeletal: positive: Normal Inspection. negative: CVA Tenderness Extremity: positive: Normal Capillary Refill Integumentary: positive: Normal Color Neurologic: positive: Fully Oriented Medical Decision Making - Medical Decision Making 04/30/19 06:38 Pocus: no hydronephrosis; no sonographic murphys UA, UHG nl a/p non specific flank/ abd pain wiht nl UA and nl vitals nsais pcp fu Discharge - Discharge Information Problems reviewed: Yes Clinical Impression/Diagnosis: Muscular pain Condition: Good Disposition: HOME - Additional Discharge Information Prescriptions: Naproxen 500 mg PO BID PRN #14 tablet PRN Reason: Pain - Follow up/Referral - Patient Discharge Instructions Patient Printed Discharge Instructions: DI for Muscle Strain - Post Discharge Activity
[2019-04-30 00:08] VITALS: BP 124/73; PULSE 73; TEMP 97.3; BMI 18.6
[2019-04-30 01:03] LABS: URINE APPEARANCE CLEAR; URINE BILIRUBIN NEGATIVE (NEGATIVE); URINE COLOR YELLOW; URINE GLUCOSE (UA) NEGATIVE (NEGATIVE); URINE KETONE NEGATIVE (NEGATIVE); URINE LEUK ESTERASE NEGATIVE (NEGATIVE); URINE NITRITE NEGATIVE (NEGATIVE); URINE PROTEIN NEGATIVE (NEGATIVE); URINE UROBILINOGEN 0.2 mg/dL (0.2-1.0)
[2019-04-30] MEDS ORDERED: KETOROLAC TROMETHAMINE 60 MG/2 ML VIAL IM ONE (01:20)
[2019-04-30] MEDS ORDERED: KETOROLAC TROMETHAMINE 60 MG/2 ML VIAL ONE (01:24)
== END 2019-04-30 02:40 | disposition home or self-care (01) ==
LOC: FER 23:57
PROC: 3E0233Z Introduction of Anti-inflammatory into Muscle, Percutaneous Approach (ICD-10-PCS; principal; 2019-04-29)
DX: M79.10 Myalgia, unspecified site (principal)
CPT/HCPCS: 81003; 84703; 87086; 99282-25

== ENCOUNTER 2020-01-12 03:01 | Emergency (ER) | payer OTHER ==
--- NOTE | 2020-01-12 03:04 | PDOC ---
History of Present Illness - General Chief Complaint: Pain, Acute Stated Complaint: CHEST PAIN, HEADACHE Time Seen by Provider: 01/12/20 03:03 - History of Present Illness Initial Comments: 01/12/20 03:38 This 34-year-old woman with a history of iron deficiency anemia presents with few day history of left-sided chest pain and intermittent headache. 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 Patient states that the chest pain is intermittent and she is not sure what triggers the pain. She denies severe pain with deep breathing, movement or position change. No history of overuse or trauma. She has no cough, shortness of breath or fever/chills. When the patient was last seen here in March of this year, there were plans for the patient to have iron infusion (arranged by her PMD, Dr. Juarez). She states she had a few IV infusions but they were stopped when coronavirus quarantine began in May. She has had no further IV infusions of iron and she has not taken any oral supplementation. She was last seen by her PMD about 6 weeks ago. No recent prolonged inactivity, recent surgery, malignancy or previous thromboembolic disease LMP 12/18 (menstrual periods have been regular with normal flow) Cardiac risk factors: None (non-smoker/no early cardiac history in close relatives/ no history of HTN or DM/no hyperlipidemia/no obesity No daily medications; patient will take ibuprofen intermittently for pain Non-smoker/no daily alcohol or recreational drug use No known drug allergies Past History - Medical History Allergies/Adverse Reactions: Allergies Allergy/AdvReac Type Severity Reaction Status Date / Time No Known Drug Allergies Allergy Verified 04/30/19 00:02 Home Medications: Ambulatory Orders Naproxen 500 mg PO BID PRN #14 tablet 04/30/19 Anemia: Yes Asthma: No Cancer: No Cardiac Disorders: No COPD: No Diabetes: No HTN: No Seizures: No Thyroid Disease: No - Reproductive History (#): 6 Para: 4 Spontaneous : 1 - Psycho-Social/Smoking History Smoking History: Never smoked Have you smoked in the past 12 months: No Review of Systems - Review of Systems Able to Perform ROS?: Yes Comments:: 12 point review of systems is negative except for what is noted in the history of present illness *Physical Exam - Physical Exam GENERAL: Adult female, appearing somewhat pale but in no acute distress, alert and oriented x3 HEAD: Normal with no signs of trauma. EYES: PERRLA, EOMI, sclera anicteric, conjunctiva clear. ENT: Ears normal, nares patent, oropharynx clear without exudates. Dry mucous membranes. NECK: Normal range of motion, supple without lymphadenopathy, JVD, or masses. LUNGS: Breath sounds equal, clear to auscultation bilaterally. No wheezes, and no crackles. HEART:Regular rate and rhythm, normal S1 and S2 without murmur, rub or gallop. ABDOMEN:.normal bowel sounds No guarding,tenderness or rebound.No masses No distention. EXTREMITIES: Normal range of motion, no edema. No clubbing or cyanosis. No eryt sharon, or tenderness. NEUROLOGICAL: Cranial nerves II through XII grossly intact. Normal speech. No focal neurological deficits. MUSCULOSKELETAL: Back non-tender to palpation, no CVA tenderness SKIN: Warm, Dry, normal turgor, no rashes or lesions noted. Twelve-lead electrocardiogram is performed and interpreted by me: Normal sinus rhythm 62 bpm; axis, intervals and waveforms are all normal. No evidence of acute ST or T wave abnormalities; no evidence of acute cardiac arrhythmia ED Treatment Course - LABORATORY CBC & Chemistry Diagram: 01/12/20 03:45 01/12/20 03:45 Medical Decision Making - Medical Decision Making This 34-year-old woman with a history of iron deficiency anemia who apparently has not been on any iron supplementation for the last several months presents with a few day history of chest pain that is intermittent with unclear triggers. She has no risk factors for cardiac disease or acute thromboembolic process. Exam, as noted, is normal. Twelve-lead electrocardiogram is normal CBC and chemistry profile sent to investigate if patient is markedly anemic or has evidence of renal/hepatic issues. Hemoglobin and hematocrit are only slightly lower than normal (9.9/29.9) Chemistry profile is essentially normal except for evidence of some prerenal azotemia with BUN of 15 and a creatinine of 0.5 Clinical presentation consistent with atypical chest pain. Patient refused acetaminophen here; she can take ibuprofen with a meal at home. Meanwhile, she should continue to eat the diet of iron rich foods that she has been consuming and drink plenty of fluids. She should see her PMD, Dr. Juarez within the next week and return to the ER if she has persistent severe pain, shortness of breath, fever or vomiting Discharge - Discharge Information Problems reviewed: Yes Clinical Impression/Diagnosis: Atypical chest pain Condition: Stable Disposition: HOME - Follow up/Referral Referrals: Halina Juarez MD [Staff Physician] - 1 week - Patient Discharge Instructions Patient Printed Discharge Instructions: DI for Atypical Chest Pain Additional Instructions: Drink plenty of water Continue to eat iron rich foods Can take Advil/Aleve/Tylenol as needed for pain (take with a meal) Call Dr. Juarez's office on January 12 and arrange for follow-up within the next 5 days Return to ER if you have persistent severe pain or experience shortness of breath, fever, vomiting - Post Discharge Activity
[2020-01-12 03:10] VITALS: BP 118/71; PULSE 73; TEMP 98.6; BMI 22.4
--- OUTSIDE RECORDS SUMMARY | 2020-01-12 03:25 | XMS ---
:1985 Author Organization [facility] Care Team Providers Name Role Phone GENEVIEVE TSAI Unavailable Unavailable Re-disclosure Warning The records that you are about to access may contain information from federally- assisted alcohol or drug abuse programs. If such information is present, then the following federally mandated warning applies: This information has been disclosed to you from records protected by federal confidentiality rules (42 CFR part 2). The federal rules prohibit you from making any further disclosure of this information unless further disclosure is expressly permitted by the written consent of the person to whom it pertains or as otherwise permitted by 42 CFR part 2. A general authorization for the release of medical or other information is NOT sufficient for this purpose. The Federal rules restrict any use of the information to criminally investigate or prosecute any alcohol or drug abuse patient.The records that you are about to access may contain highly sensitive health information, the redisclosure of which is protected by Article 27-F of the [facility] Public Health law. If you continue you may haveaccess to information: Regarding HIV / AIDS; Provided by facilities licensed or operated by the [facility] Office of Mental Health; or Provided by the [facility] Office for People With Developmental Disabilities. If such information is present, then the following [facility] mandated warning applies: This information has been disclosed to you from confidential records which are protected by state law. State law prohibits you from making any further disclosure of this information without the specific written consent of the person to whom it pertains, or as otherwise permitted by law. Any unauthorized further disclosure in violation of state law may result in a fine or skilled nursing sentence or both. A general authorization for the release of medical or other information is NOT sufficient authorization for further disclosure. Allergies and Adverse Reactions Type Description Substance Reaction Status Data Source(s ) Drug allergy No Known Allergies No Known [facility] Allergies [facility] Drug allergy No Known Drug No Known Drug [facility] Allergies Allergies [facility] Food allergy No Known Food No Known Food [facility] Allergies Allergies [facility] Care [facility] Encounters Encounter Providers Location Date Indications Data Source(s ) Outpatient Attender: [facility], 05/30/2019 D50.9 N18.3 [facility] TAUSEEFAdmitter: 05:00:00 AM Health Care [facility] [employer] TAUSEEFReferrer: [facility]MED, TAUSEEF D50.9 N18.3 Outpatient Attender: [facility], 05/16/2019 D50.9 N18.3 [facility] TAUSEEFAdmitter: [facility], 05:00:00 AM [facility] TAUSEEFReferrer: [facility], C orporation TAUSEEF D50.9 N18.3 Outpatient Attender: [facility], 05/02/2019 D50.9 N18.3 [facility] TAUSEEFAdmitter: [facility], 05:00:00 AM [facility] TAUSEEFReferrer: [facility], C orporation TAUSEEF D50.9 N18.3 Outpatient Attender: [facility], 04/18/2019 D50.9 N18.3 [facility] TAUSEEFAdmitter: AHMED, 05:00:00 AM [facility] Care TAUSEEFReferrer: [facility]MED, C orporation TAUSEEF D50.9 N18.3 Insurance Providers Payer name Policy type Policy ID Covered Covered alliance party's Policy P valentin / Coverage alliance party ID relationship to Cuellar Inf ormation type cuellar DIONISIO [id number] SP [id number] HEALTH NON CAP DIONISIO [id number] SP [id number] HEALTH NON CAP MEDICAID [id number] SP [id number] Problems, Conditions, and Diagnoses Code Display Name Description Problem Type Effective Dates Data Source(s) N18.3 Chronic kidney CHRONIC KIDNEY Diagnosis 05/30/2019 [facility] disease, stage 3 DISEASE, STAGE 3 05:00:00 AM [facility] Corpor[facility] on D50.9 Iron deficiency IRON DEFICIENCY Diagnosis 05/30/2019 Reji glynn anemia, ANEMIA, 05:00:00 AM [facility]th unspecified UNSPECIFIED Care Corpora tion
[2020-01-12] MEDS ORDERED: ACETAMINOPHEN 500 MG TABLET (FP) PO ONE (03:37)
[2020-01-12] MEDS ORDERED: ACETAMINOPHEN 500 MG TABLET (FP) ONE (03:40)
[2020-01-12 04:31] LABS: BASO % 0.9 % (0-2.0); EOS % 4.2 % (0-4.5); HEMATOCRIT 29.9 % (32.4-45.2); HEMOGLOBIN 9.9 GM/dL (10.7-15.3); LYMPH % 40.8 % (8-40); MCH 26.4 pg (25.7-33.7); MCHC 32.9 g/dl (32.0-36.0); MEAN CELL VOLUME 80.2 fl (80-96); MEAN PLT VOLUME 9.3 fl (7.5-11.1); MONO % 8.7 % (3.8-10.2); NEUT % 45.4 % (42.8-82.8); PLATELET COUNT 246 K/MM3 (134-434); RBC 3.73 M/mm3 (3.60-5.2); RDW 15.9 % (11.6-15.6)
[2020-01-12 04:47] LABS: POTASSIUM 3.7 mmol/L (3.5-5.1)
[2020-01-12 04:49] LABS: CALCIUM 8.5 mg/dL (8.5-10.1)
[2020-01-12 04:50] LABS: ALBUMIN 3.5 g/dl (3.4-5.0)
[2020-01-12 04:53] LABS: CREATININE 0.5 mg/dL (0.55-1.3)
[2020-01-12 04:54] LABS: BILIRUBIN,TOTAL 0.2 mg/dL (0.2-1); TOT PROT 7.2 g/dl (6.4-8.2)
--- NOTE | 2020-01-13 16:14 | EKG ---
Test Reason : Blood Pressure : / mmHG Vent. Rate : 062 BPM Atrial Rate : 062 BPM P-R Int : 136 ms QRS Dur : 090 ms QT Int : 418 ms P-R-T Axes : 025 069 057 degrees QTc Int : 424 ms NORMAL SINUS RHYTHM NORMAL ECG WHEN COMPARED WITH ECG OF 28-MAR-2019 01:12, NO SIGNIFICANT CHANGE WAS FOUND Confirmed by SAMUEL RLOAND MD ([id number]) on 01/13/2020 4:14:34 PM Referred By: MD KAPLAN Confirmed By:SAMUEL ROLAND MD
== END 2020-01-12 05:12 | disposition home or self-care (01) ==
LOC: FER 03:01
DX: R07.9 Chest pain, unspecified (principal)
CPT/HCPCS: 36415; 80053; 85025; 93005; 99284-25

== ENCOUNTER 2020-02-18 18:44 | Emergency (ER) | payer OTHER ==
[2020-02-18 18:57] VITALS: BP 128/76; PULSE 85; TEMP 98.2; BMI 19.3
[2020-02-18] MEDS ORDERED: ONDANSETRON 4 MG/2 ML VIAL IVPB ONE (19:27)
[2020-02-18] MEDS ORDERED: SODIUM CHLORIDE 1,000 ML IV ONE (19:27)
[2020-02-18] MEDS ORDERED: ONDANSETRON 4 MG/2 ML VIAL ONE (19:50)
[2020-02-18 19:56] LABS: EPITHELIAL CELLS FEW /hpf
[2020-02-18 20:21] LABS: BASO % 3.2 % (0-2.0); EOS % 3.7 % (0-4.5); HEMATOCRIT 31.4 % (32.4-45.2); LYMPH % 34.4 % (8-40); MCH 25.6 pg (25.7-33.7); MEAN CELL VOLUME 80.2 fl (80-96); MEAN PLT VOLUME 8.9 fl (7.5-11.1); NEUT % 50.7 % (42.8-82.8); PLATELET COUNT 284 K/MM3 (134-434); RBC 3.92 M/mm3 (3.60-5.2); RDW 15.3 % (11.6-15.6); WHITE BLOOD COUNT 6.7 K/mm3 (4.0-10.8)
[2020-02-18 20:36] LABS: ALBUMIN 4.1 g/dl (3.4-5.0); BILIRUBIN,TOTAL 0.6 mg/dl (0.2-1); CALCIUM 8.6 mg/dl (8.5-10); CREATININE 0.6 mg/dl (0.55-1.3); TOT PROT 7.8 g/dl (6.4-8.2)
== END 2020-02-18 21:12 | disposition home or self-care (01) ==
LOC: FER 18:44
PROC: 3E0333Z Introduction of Anti-inflammatory into Peripheral Vein, Percutaneous Approach (ICD-10-PCS; principal; 2020-02-18)
PROC: 3E0337Z Introduction of Electrolytic and Water Balance Substance into Peripheral Vein, Percutaneous Approach (ICD-10-PCS; 2020-02-18)
DX: O21.9 Vomiting of pregnancy, unspecified (principal)
CPT/HCPCS: 36415; 80053; 81003; 81015; 81025; 85025; 99284-25

== ENCOUNTER 2020-03-26 17:50 | Emergency (ER) | payer OTHER ==
[2020-03-26 18:03] VITALS: BP 107/73; PULSE 71; TEMP 98; BMI 19.3
[2020-03-26] MEDS ORDERED: ONDANSETRON 4 MG/2 ML VIAL IVPUSH ONE (18:28)
[2020-03-26] MEDS ORDERED: SODIUM CHLORIDE 1,000 ML IV STA (18:28)
[2020-03-26] MEDS ORDERED: FAMOTIDINE 20 MG/50 ML IVPB 20 MG/50 ML MG IVPB ONE ×2 (18:28→18:43)
[2020-03-26] MEDS ORDERED: ONDANSETRON 4 MG/2 ML VIAL ONE (18:43)
[2020-03-26 19:00] LABS: BASO % 1.7 % (0-2.0); EOS % 2.7 % (0-4.5); HEMOGLOBIN 10.8 GM/dl (10.7-15.3); LYMPH % 31.1 % (8-40); MCH 25.1 pg (25.7-33.7); MCHC 31.7 g/dl (32.0-36.0); MEAN CELL VOLUME 79.3 fl (80-96); MEAN PLT VOLUME 9.4 fl (7.5-11.1); MONO % 8.2 % (3.8-10.2); NEUT % 56.3 % (42.8-82.8); PLATELET COUNT 285 K/MM3 (134-434); RBC 4.28 M/mm3 (3.60-5.2); RDW 17.3 % (11.6-15.6); WHITE BLOOD COUNT 6.3 K/mm3 (4.0-10.8)
[2020-03-26 19:12] LABS: ALBUMIN 4.2 g/dl (3.4-5.0); BILIRUBIN,TOTAL 0.6 mg/dl (0.2-1); CALCIUM 9.4 mg/dl (8.5-10); CREATININE 0.4 mg/dl (0.55-1.3); POTASSIUM 3.8 mmol/L (3.5-5.1)
[2020-03-26] MEDS ORDERED: SODIUM CHLORIDE 1,000 ML IV ONE (19:49)
[2020-03-26 20:15] LABS: URINE APPEARANCE CLEAR; URINE COLOR YELLOW; URINE GLUCOSE (UA) NEGATIVE (NEGATIVE)
[2020-03-26 20:16] LABS: PH,URINE 5.5 (4.5-8); URINE BILIRUBIN NEGATIVE (NEGATIVE); URINE KETONE 1+ (NEGATIVE); URINE NITRITE NEGATIVE (NEGATIVE); URINE PROTEIN NEGATIVE (NEGATIVE); URINE UROBILINOGEN 0.2 (0.2-1.0)
[2020-03-26 20:17] LABS: URINE LEUK ESTERASE NEGATIVE (NEGATIVE)
== END 2020-03-26 21:10 | disposition home or self-care (01) ==
LOC: FER 17:50
PROC: 3E033GC Introduction of Other Therapeutic Substance into Peripheral Vein, Percutaneous Approach (ICD-10-PCS; principal; 2020-03-26)
PROC: 3E033GC Introduction of Other Therapeutic Substance into Peripheral Vein, Percutaneous Approach (ICD-10-PCS; 2020-03-26)
PROC: 3E0337Z Introduction of Electrolytic and Water Balance Substance into Peripheral Vein, Percutaneous Approach (ICD-10-PCS; 2020-03-26)
PROC: 3E0337Z Introduction of Electrolytic and Water Balance Substance into Peripheral Vein, Percutaneous Approach (ICD-10-PCS; 2020-03-26)
DX: O21.1 Hyperemesis gravidarum with metabolic disturbance (principal); D64.9 Anemia, unspecified; Z3A.09 9 weeks gestation of pregnancy
CPT/HCPCS: 36415; 76775-TC; 76801-TC; 80053; 81003; 83690; 84702; 85025; 87086; 99285-25

== ENCOUNTER 2020-07-29 00:27 | Emergency (ER) | payer OTHER ==
[2020-07-29 00:36] VITALS: BP 97/63; PULSE 63; TEMP 97.7; BMI 18.4
== END 2020-07-29 00:52 | disposition home or self-care (01) ==
LOC: FER 00:27
DX: J30.2 Other seasonal allergic rhinitis (principal)
CPT/HCPCS: 99281-25

== ENCOUNTER 2020-10-05 19:30 | Inpatient (IN) | payer OTHER ==
[2020-10-05] MEDS ORDERED: AMPICILLIN SODIUM 2 GM VIAL ONE (20:53)
[2020-10-05] MEDS ORDERED: AMPICILLIN - 2 GM in SODIUM CHLORIDE 100 ML IVPB ONE (21:00)
[2020-10-05 21:04] LABS: BASO % 0.5 % (0-2.0); EOS % 1.5 % (0-4.5); HEMATOCRIT 33.2 % (32.4-45.2); HEMOGLOBIN 11.2 GM/dL (10.7-15.3); LYMPH % 20.3 % (8-40); MCH 29.4 pg (25.7-33.7); MCHC 33.7 g/dl (32.0-36.0); MEAN CELL VOLUME 87.1 fl (80-96); MEAN PLT VOLUME 9.1 fl (7.5-11.1); MONO % 7.5 % (3.8-10.2); NEUT % 70.2 % (42.8-82.8); PLATELET COUNT 166 10^3/uL (134-434); RBC 3.81 M/mm3 (3.60-5.2); RDW 16.3 % (11.6-15.6); WHITE BLOOD COUNT 7.9 K/mm3 (4.0-10.0)
[2020-10-05 21:11] LABS: INR 0.92 (0.83-1.09); PROTHROMBIN TIME (PATIENT) 11.2 SEC (9.7-13.0)
[2020-10-05 21:14] LABS: ACTIVATED PTT 28.9 SECONDS (25.2-36.5)
[2020-10-05] MEDS ORDERED: ELECTROLYTE-148 SOLN 1,000 ML IV SCH ×2 (21:15→21:30)
[2020-10-05 21:33] LABS: CALCIUM 8.4 mg/dL (8.5-10.1)
[2020-10-05 21:34] LABS: BLOOD UREA NITROGEN 11.2 mg/dL (7-18)
[2020-10-05 21:37] LABS: CREATININE 0.5 mg/dL (0.55-1.3)
[2020-10-05] MEDS ORDERED: OXYTOCIN 30 UNITS in 0.9% NS 30 UNIT/500 ML INFUS.BAG IVPB SCH (22:15)
[2020-10-05] MEDS ORDERED: OXYTOCIN 30 UNITS in 0.9% NS 30 UNIT/500 ML INFUS.BAG IVPB ONE (22:24)
[2020-10-05 22:39] VITALS: BMI 18.8
[2020-10-05] MEDS ORDERED: LIDOCAINE HCL 1% PRESERVATIVE FREE - 30ML VIAL ONE (23:18)
[2020-10-05] MEDS ORDERED: OXYTOCIN 20 UNITS in 0.9% NS 20 UNIT/1,000 ML INFUS.BAG IV ONE (23:18)
[2020-10-06] MEDS ORDERED: MISOPROSTOL 200 MCG TABLET ONE (00:20)
[2020-10-06] MEDS ORDERED: BENZOCAINE 20% 57 GM BOTTLE TP PRN (00:27)
[2020-10-06] MEDS ORDERED: BENZOCAINE 28 GM HEMORRHOIDAL OINTMENT TP PRN (00:27)
[2020-10-06] MEDS ORDERED: WITCH HAZEL 50% (TUCKS) 40 PAD/JAR PAD TP PRN (00:27)
[2020-10-06] MEDS ORDERED: BISACODYL 10 MG SUPP.RECT RC PRN (00:27)
[2020-10-06] MEDS ORDERED: MISOPROSTOL 200 MCG TABLET PV ONE (00:28)
[2020-10-06] MEDS ORDERED: OXYTOCIN 20 UNITS in 0.9% NS 20 UNIT/1,000 ML INFUS.BAG IV SCH (00:30)
[2020-10-06] MEDS ORDERED: AMPICILLIN - 1 GM in SODIUM CHLORIDE 100 ML IVPB SCH (01:00)
[2020-10-06] MEDS ORDERED: OXYTOCIN 20 UNITS in 0.9% NS 20 UNIT/1,000 ML INFUS.BAG IV ONE (01:19)
[2020-10-06] MEDS: IBUPROFEN 600 MG TABLET (FP) PO PRN ×5 (01:35→22:36)
[2020-10-06] MEDS ORDERED: IBUPROFEN 600 MG TABLET (FP) PO ONE (01:39)
[2020-10-06] MEDS: ACETAMINOPHEN 325 MG TABLET (FP) PO PRN ×5 (03:25→22:37)
[2020-10-07] MEDS: IBUPROFEN 600 MG TABLET (FP) PO PRN ×3 (08:44→19:42)
[2020-10-07] MEDS: ACETAMINOPHEN 325 MG TABLET (FP) PO PRN ×3 (08:45→19:42)
[2020-10-07 09:08] LABS: BASO % 0.7 % (0-2.0); EOS % 3.8 % (0-4.5); HEMOGLOBIN 10.7 GM/dL (10.7-15.3); LYMPH % 29.4 % (8-40); MCH 29.3 pg (25.7-33.7); MCHC 33.5 g/dl (32.0-36.0); MEAN CELL VOLUME 87.3 fl (80-96); MEAN PLT VOLUME 8.7 fl (7.5-11.1); MONO % 7.2 % (3.8-10.2); NEUT % 58.9 % (42.8-82.8); PLATELET COUNT 167 10^3/uL (134-434); RBC 3.66 M/mm3 (3.60-5.2); RDW 16.3 % (11.6-15.6); WHITE BLOOD COUNT 7.7 K/mm3 (4.0-10.0)
[2020-10-07] MEDS ORDERED: SENNOSIDES/DOCUSATE COMBO (SENNA PLUS) TABLET (UD) PO PRN (22:00)
[2020-10-08 08:33] VITALS: BP 99/66; PULSE 68; TEMP 97.8
[2020-10-08] MEDS: ACETAMINOPHEN 325 MG TABLET (FP) PO PRN (10:42)
[2020-10-08] MEDS: IBUPROFEN 600 MG TABLET (FP) PO PRN (10:43)
== END 2020-10-08 13:50 | disposition home or self-care (01) | DRG 560 ==
LOC: JDEL 19:30 → JLDR 19:31 → J3W 10-06 02:09
PROVIDERS: ADMIT Student in an Organized Health Care Education/Training Program; ATTEND Student in an Organized Health Care Education/Training Program
PROC: 10E0XZZ Delivery of Products of Conception, External Approach (ICD-10-PCS; principal; 2020-10-06)
DX: O80 Encounter for full-term uncomplicated delivery (principal); Z3A.38 38 weeks gestation of pregnancy; Z37.0 Single live birth
CPT/HCPCS: 36415; 59025; 59409; 80048; 85025; 85610; 85730; 86780; 86850; 86900; 86901; C9803; U0003; U0005

== ENCOUNTER 2020-12-01 16:59 | Emergency (ER) | payer OTHER ==
[2020-12-01 17:36] VITALS: BP 118/82; PULSE 70; TEMP 97.6; BMI 21.9
[2020-12-01] MEDS ORDERED: SODIUM CHLORIDE 1,000 ML IV STA (18:32)
[2020-12-01] MEDS ORDERED: ONDANSETRON 4 MG/2 ML VIAL IVPUSH ONE (18:33)
[2020-12-01] MEDS ORDERED: ONDANSETRON 4 MG/2 ML VIAL ONE (18:49)
[2020-12-01 19:28] LABS: BASO % 1.4 % (0-2.0); EOS % 6.4 % (0-4.5); HEMATOCRIT 36.1 % (32.4-45.2); MCH 29.3 pg (25.7-33.7); MCHC 33.4 g/dl (32.0-36.0); MEAN CELL VOLUME 87.7 fl (80-96); MEAN PLT VOLUME 8.3 fl (7.5-11.1); MONO % 7.3 % (3.8-10.2); NEUT % 39.9 % (42.8-82.8); PLATELET COUNT 326 10^3/uL (134-434); RBC 4.12 M/mm3 (3.60-5.2); RDW 13.7 % (11.6-15.6); WHITE BLOOD COUNT 5.6 K/mm3 (4.0-10.0)
[2020-12-01 19:48] LABS: CHLORIDE 104 mmol/L (98-107); SODIUM 131 mmol/L (136-145)
[2020-12-01 19:53] LABS: ALBUMIN 3.7 g/dl (3.4-5.0); CO2 26 mmol/L (21-32)
[2020-12-01 19:54] LABS: GLUCOSE,RANDOM 81 mg/dL (74-106); LIPASE 51 U/L (73-393)
[2020-12-01 19:57] LABS: CREATININE 0.6 mg/dL (0.55-1.3)
[2020-12-01 19:58] LABS: BILIRUBIN,TOTAL 0.5 mg/dL (0.2-1); TOT PROT 8.6 g/dl (6.4-8.2)
[2020-12-01 19:59] LABS: ALK PHOS 54 U/L (45-117)
[2020-12-01 20:01] LABS: ANION GAP 1 MMOL/L (8-16); SGOT/AST 73 U/L (15-37); SGPT/ALT 33 U/L (13-61)
[2020-12-01 21:11] LABS: CALCIUM 8.1 mg/dL (8.5-10.1)
[2020-12-01 21:12] LABS: BLOOD UREA NITROGEN 9.6 mg/dL (7-18)
[2020-12-01 21:13] LABS: EPI CELLS 9 /uL (0-25.1); HYALINE CASTS 1 /uL (0-3.1); PH,URINE 6.5 (5.0-8.0); URINE APPEARANCE CLEAR; URINE BACTERIA 57 /uL (0-1359); URINE BILIRUBIN NEGATIVE (NEGATIVE); URINE COLOR YELLOW; URINE GLUCOSE (UA) NEGATIVE (NEGATIVE); URINE KETONE NEGATIVE (NEGATIVE); URINE LEUK ESTERASE TRACE (NEGATIVE); URINE NITRITE NEGATIVE (NEGATIVE); URINE PROTEIN NEGATIVE (NEGATIVE); URINE RBC 4 /uL (0-23.9); URINE UROBILINOGEN 0.2 mg/dL (0.2-1.0); URINE WBC 17 /uL (0-25.8)
[2020-12-01 21:15] LABS: CREATININE 0.4 mg/dL (0.55-1.3)
[2020-12-01] MEDS ORDERED: KETOROLAC TROMETHAMINE 30 MG/1 ML VIAL IVPUSH ONE (21:43)
[2020-12-01] MEDS ORDERED: KETOROLAC TROMETHAMINE 30 MG/1 ML VIAL ONE (21:55)
== END 2020-12-01 22:53 | disposition home or self-care (01) ==
LOC: JER 16:59
PROC: 3E0333Z Introduction of Anti-inflammatory into Peripheral Vein, Percutaneous Approach (ICD-10-PCS; principal; 2020-12-01)
PROC: 3E033GC Introduction of Other Therapeutic Substance into Peripheral Vein, Percutaneous Approach (ICD-10-PCS; 2020-12-01)
PROC: 3E0337Z Introduction of Electrolytic and Water Balance Substance into Peripheral Vein, Percutaneous Approach (ICD-10-PCS; 2020-12-01)
DX: K52.9 Noninfective gastroenteritis and colitis, unspecified (principal); R10.30 Lower abdominal pain, unspecified; N83.202 Unspecified ovarian cyst, left side
CPT/HCPCS: 36415; 74177-TC; 80048; 80053; 81003; 83690; 84703; 85025; 93005; 93010; 96361; 96374; 96375; 99285-25; C9803; Q9967; U0003; U0005

== ENCOUNTER 2021-08-31 18:19 | Emergency (ER) | payer OTHER ==
[2021-08-31 18:32] VITALS: TEMP 98; BMI 19.3
[2021-08-31] MEDS ORDERED: ONDANSETRON 4 MG/2 ML VIAL IVPUSH ONE (20:02)
[2021-08-31] MEDS ORDERED: SODIUM CHLORIDE 1,000 ML IV STA (20:02)
[2021-08-31] MEDS ORDERED: ONDANSETRON 4 MG/2 ML VIAL ONE (20:56)
[2021-08-31] MEDS ORDERED: FAMOTIDINE 20 MG/50 ML IVPB 20 MG/50 ML MG IVPB ONE ×2 (21:00→21:07)
[2021-08-31] MEDS ORDERED: MAG HYDROX/AL HYDROX/SIMETH -MYLANTA- ORAL SUSPENSION PO ONE (21:00)
[2021-08-31] MEDS ORDERED: MAG HYDROX/AL HYDROX/SIMETH 30 ML UNIT-DOSE CUP ONE (21:07)
[2021-08-31 22:20] LABS: BASO % 0.7 % (0-2.0); EOS % 2.7 % (0-4.5); HEMATOCRIT 31.1 % (32.4-45.2); HEMOGLOBIN 9.9 GM/dL (10.7-15.3); LYMPH % 34.2 % (8-40); MCH 23.2 pg (25.7-33.7); MCHC 31.9 g/dl (32.0-36.0); MEAN CELL VOLUME 72.9 fl (80-96); MONO % 6.5 % (3.8-10.2); NEUT % 55.9 % (42.8-82.8); PLATELET COUNT 308 10^3/uL (134-434); RBC 4.26 M/mm3 (3.60-5.2); RDW 17.9 % (11.6-15.6)
[2021-08-31 22:22] LABS: EPI CELLS 3 /uL (0-25.1); HYALINE CASTS 3 /uL (0-3.1); PH,URINE 5.5 (5.0-8.0); URINE APPEARANCE CLEAR; URINE BACTERIA 249 /uL (0-1359); URINE BILIRUBIN NEGATIVE (NEGATIVE); URINE COLOR YELLOW; URINE GLUCOSE (UA) NEGATIVE (NEGATIVE); URINE KETONE 1+ (NEGATIVE); URINE LEUK ESTERASE 1+ (NEGATIVE); URINE NITRITE NEGATIVE (NEGATIVE); URINE PROTEIN NEGATIVE (NEGATIVE); URINE RBC 5 /uL (0-23.9); URINE UROBILINOGEN 0.2 mg/dL (0.2-1.0); URINE WBC 168 /uL (0-25.8)
[2021-08-31 22:44] LABS: ALBUMIN 4.3 g/dl (3.4-5.0); BLOOD UREA NITROGEN 11.8 mg/dL (7-18); CALCIUM 9.5 mg/dL (8.5-10.1)
[2021-08-31 22:47] LABS: CREATININE 0.6 mg/dL (0.55-1.3)
[2021-08-31 22:49] LABS: BILIRUBIN,TOTAL 0.6 mg/dL (0.2-1); TOT PROT 8.8 g/dl (6.4-8.2)
[2021-09-01 07:30] VITALS: BP 120/75; PULSE 69
== END 2021-08-31 23:19 | disposition home or self-care (01) ==
LOC: JER 18:19
PROC: 3E033GC Introduction of Other Therapeutic Substance into Peripheral Vein, Percutaneous Approach (ICD-10-PCS; principal; 2021-08-31)
DX: N30.90 Cystitis, unspecified without hematuria (principal)
CPT/HCPCS: 36415; 73030-TC-RT-FY; 73552-TC-RT-FY; 80053; 81003; 83690; 85025; 87086; 87186; 99284-25

== ENCOUNTER 2021-09-28 00:29 | Emergency (ER) | payer OTHER ==
[2021-09-28 01:06] VITALS: BMI 19.3
[2021-09-28] MEDS ORDERED: ACETAMINOPHEN 325 MG TABLET (FP) PO ONE (03:50)
[2021-09-28] MEDS ORDERED: ACETAMINOPHEN 325 MG TABLET (FP) ONE (04:17)
[2021-09-28 04:46] LABS: PH,URINE 5.5 (5.0-8.0); URINE APPEARANCE CLEAR; URINE BILIRUBIN NEGATIVE (NEGATIVE); URINE COLOR YELLOW; URINE GLUCOSE (UA) NEGATIVE (NEGATIVE); URINE KETONE NEGATIVE (NEGATIVE); URINE LEUK ESTERASE NEGATIVE (NEGATIVE); URINE NITRITE NEGATIVE (NEGATIVE); URINE PROTEIN NEGATIVE (NEGATIVE); URINE UROBILINOGEN 0.2 mg/dL (0.2-1.0)
[2021-09-28 04:49] LABS: HCG,QUALITATIVE URINE Negative
[2021-09-28 06:39] LABS: CALCIUM 9.1 mg/dL (8.5-10.1)
[2021-09-28 06:40] LABS: ALBUMIN 4.2 g/dl (3.4-5.0); BLOOD UREA NITROGEN 13.3 mg/dL (7-18)
[2021-09-28 06:43] LABS: CREATININE 0.6 mg/dL (0.55-1.3)
[2021-09-28 06:44] LABS: BILIRUBIN,TOTAL 0.4 mg/dL (0.2-1); TOT PROT 8.8 g/dl (6.4-8.2)
[2021-09-28 06:52] VITALS: TEMP 98
[2021-09-28 07:36] LABS: BASO % 0.8 % (0-2.0); EOS % 4.2 % (0-4.5); HEMATOCRIT 25.8 % (32.4-45.2); HEMOGLOBIN 8.4 GM/dL (10.7-15.3); LYMPH % 42.3 % (8-40); MCH 23.1 pg (25.7-33.7); MCHC 32.4 g/dl (32.0-36.0); MEAN CELL VOLUME 71.3 fl (80-96); MEAN PLT VOLUME 8.5 fl (7.5-11.1); MONO % 8.8 % (3.8-10.2); NEUT % 43.9 % (42.8-82.8); PLATELET COUNT 301 10^3/uL (134-434); RBC 3.62 M/mm3 (3.60-5.2); RDW 19.1 % (11.6-15.6); WHITE BLOOD COUNT 6.2 K/mm3 (4.0-10.0)
[2021-09-28 08:37] LABS: CHLORIDE 113 mmol/L (98-107); SODIUM 141 mmol/L (136-145)
[2021-09-28 08:39] LABS: ANION GAP 9 MMOL/L (8-16); BLOOD UREA NITROGEN 10.9 mg/dL (7-18); CO2 19 mmol/L (21-32); GLUCOSE,RANDOM 74 mg/dL (74-106)
[2021-09-28] MEDS ORDERED: POTASSIUM CHLORIDE TABS 20 MEQ TABLET.ER (FP) PO ONE ×2 (08:41→08:43)
[2021-09-28 08:42] LABS: CREATININE 0.3 mg/dL (0.55-1.3)
[2021-09-28 09:00] LABS: CALCIUM 6.9 mg/dL (8.5-10.1)
[2021-09-28 10:37] LABS: BLOOD UREA NITROGEN 12.4 mg/dL (7-18)
[2021-09-28 10:40] LABS: CALCIUM 8.5 mg/dL (8.5-10.1); CREATININE 0.4 mg/dL (0.55-1.3)
[2021-09-28 10:57] VITALS: BP 108/65; PULSE 74
== END 2021-09-28 10:57 | disposition home or self-care (01) ==
LOC: JER 00:29
DX: R10.30 Lower abdominal pain, unspecified (principal)
CPT/HCPCS: 36415; 74177-TC; 80048; 80053; 81003; 84703; 85025; 87086; 87491; 87591; 99285-25; Q9967

== ENCOUNTER 2022-01-19 03:26 | Observation (INO) | payer OTHER ==
[2022-01-19 03:49] VITALS: BMI 18.8
[2022-01-19] MEDS ORDERED: ACETAMINOPHEN 500 MG TABLET (FP) PO ONE (04:15)
[2022-01-19] MEDS ORDERED: ACETAMINOPHEN 325 MG TABLET (FP) ONE ×2 (04:22→19:55)
[2022-01-19] MEDS ORDERED: ONDANSETRON 4 MG TABLET PO ONE (04:33)
[2022-01-19] MEDS ORDERED: ONDANSETRON *ODT* 4 MG TABLET ONE (04:36)
[2022-01-19 04:45] LABS: BASO % 1.9 % (0-2.0); EOS % 5.3 % (0-4.5); HEMATOCRIT 24.5 % (32.4-45.2); HEMOGLOBIN 7.8 GM/dL (10.7-15.3); LYMPH % 47.5 % (8-40); MCH 21.6 pg (25.7-33.7); MCHC 31.7 g/dl (32.0-36.0); MEAN CELL VOLUME 68.2 fl (80-96); MEAN PLT VOLUME 8.3 fl (7.5-11.1); MONO % 10.1 % (3.8-10.2); NEUT % 35.2 % (42.8-82.8); PLATELET COUNT 292 10^3/uL (134-434); RBC 3.58 M/mm3 (3.60-5.2); RDW 20.9 % (11.6-15.6); WHITE BLOOD COUNT 4.6 K/mm3 (4.0-10.0)
[2022-01-19 04:53] LABS: URINE APPEARANCE CLEAR; URINE BILIRUBIN NEGATIVE (NEGATIVE); URINE COLOR YELLOW; URINE GLUCOSE (UA) NEGATIVE (NEGATIVE); URINE KETONE NEGATIVE (NEGATIVE); URINE LEUK ESTERASE NEGATIVE (NEGATIVE); URINE NITRITE NEGATIVE (NEGATIVE); URINE PROTEIN NEGATIVE (NEGATIVE)
[2022-01-19 05:04] LABS: CHLORIDE 108 mmol/L (98-107); SODIUM 139 mmol/L (136-145)
[2022-01-19 05:06] LABS: ALBUMIN 3.5 g/dl (3.4-5.0); ANION GAP 6 MMOL/L (8-16); BLOOD UREA NITROGEN 15.5 mg/dL (7-18); CO2 25 mmol/L (21-32); GLUCOSE,RANDOM 108 mg/dL (74-106)
[2022-01-19 05:09] LABS: SGPT/ALT 19 U/L (13-61)
[2022-01-19 05:10] LABS: CREATININE 0.5 mg/dL (0.55-1.3); SGOT/AST 14 U/L (15-37)
[2022-01-19 05:11] LABS: BILIRUBIN,TOTAL 0.2 mg/dL (0.2-1); TOT PROT 7.3 g/dl (6.4-8.2)
[2022-01-19 05:12] LABS: ALK PHOS 45 U/L (45-117)
[2022-01-19 06:52] LABS: ANISOCYTOSIS 1+; MACROCYTOSIS 0; OVALOCYTE 1+; ROULEAU 1+
[2022-01-19] MEDS ORDERED: ACETAMINOPHEN 325 MG TABLET (FP) PO PRN (08:26)
[2022-01-19 09:17] LABS: LDH 131 U/L (84-246)
[2022-01-19 09:20] LABS: IRON SERUM 11 ug/dL (50-175); TOTAL IRON BINDING CAPACITY 409 ug/dL (250-450)
[2022-01-19 10:38] LABS: RETICULOCYTES 0.89 % (0.5-1.5)
[2022-01-19] MEDS ORDERED: FERRIC CARBOXYMALTOSE 750 MG in SODIUM CHLORIDE 250 ML IVPB ONE (19:00)
[2022-01-19 21:09] VITALS: BP 103/63; PULSE 72; RESP 20; TEMP 98.8
== END 2022-01-19 21:22 | disposition home or self-care (01) ==
LOC: JER 03:26 → JERBED 05:28
PROVIDERS: ADMIT Internal Medicine; ATTEND Internal Medicine
PROC: 3E033GC Introduction of Other Therapeutic Substance into Peripheral Vein, Percutaneous Approach (ICD-10-PCS; principal; 2022-01-19)
DX: D64.89 Other specified anemias (principal)
CPT/HCPCS: 0241U-QW; 36415; 71046-TC-FY; 80053; 81003; 82728; 83010; 83540; 83550; 83615; 83735; 84484; 84703; 85025; 85045; 87086; 93005; 93010; 96365; 99285-25; G0378; J1439

== ENCOUNTER 2022-02-26 22:20 | Emergency (ER) | payer OTHER ==
[2022-02-26 22:26] VITALS: TEMP 98.1; BMI 19.3
[2022-02-26 23:32] LABS: PH,URINE 5.5 (5.0-8.0); URINE APPEARANCE CLEAR; URINE BILIRUBIN NEGATIVE (NEGATIVE); URINE COLOR YELLOW; URINE GLUCOSE (UA) NEGATIVE (NEGATIVE); URINE KETONE NEGATIVE (NEGATIVE); URINE LEUK ESTERASE NEGATIVE (NEGATIVE); URINE NITRITE NEGATIVE (NEGATIVE); URINE PROTEIN NEGATIVE (NEGATIVE); URINE UROBILINOGEN 0.2 mg/dL (0.2-1.0)
[2022-02-26 23:35] LABS: HCG,QUALITATIVE URINE Negative
[2022-02-27 00:16] LABS: BASO % 1.2 % (0-2.0); EOS % 7.7 % (0-4.5); HEMOGLOBIN 11.1 GM/dL (10.7-15.3); LYMPH % 25.2 % (8-40); MCH 24.7 pg (25.7-33.7); MCHC 31.8 g/dl (32.0-36.0); MEAN CELL VOLUME 77.7 fl (80-96); MONO % 12.4 % (3.8-10.2); NEUT % 53.5 % (42.8-82.8); PLATELET COUNT 239 10^3/uL (134-434); RDW 27.1 % (11.6-15.6); WHITE BLOOD COUNT 4.4 K/mm3 (4.0-10.0)
[2022-02-27 00:35] LABS: CHLORIDE 104 mmol/L (98-107); SODIUM 138 mmol/L (136-145)
[2022-02-27 00:38] LABS: ALBUMIN 3.3 g/dl (3.4-5.0); ANION GAP 9 MMOL/L (8-16); BLOOD UREA NITROGEN 16.4 mg/dL (7-18); CALCIUM 8.8 mg/dL (8.5-10.1); CO2 24 mmol/L (21-32); GLUCOSE,RANDOM 104 mg/dL (74-106)
[2022-02-27 00:41] LABS: CREATININE 0.4 mg/dL (0.55-1.3); SGOT/AST 37 U/L (15-37); SGPT/ALT 41 U/L (13-61)
[2022-02-27 00:43] LABS: BILIRUBIN,TOTAL 0.2 mg/dL (0.2-1); TOT PROT 7.1 g/dl (6.4-8.2)
[2022-02-27 00:44] LABS: ALK PHOS 51 U/L (45-117)
[2022-02-27 04:55] VITALS: BP 124/77; PULSE 77; RESP 16
[2022-02-27 05:23] LABS: ANISOCYTOSIS 1+; MACROCYTOSIS 0; PLATELET ESTIMATE NORMAL
== END 2022-02-27 04:55 | disposition home or self-care (01) ==
LOC: JER 22:20
DX: J11.1 Influenza due to unidentified influenza virus with other respiratory manifestations (principal); R10.30 Lower abdominal pain, unspecified
CPT/HCPCS: 0241U-QW; 36415; 71045-TC-FY; 74177-TC; 80053; 81003; 84484; 84703; 85025; 87086; 93005; 93010; 99285-25; Q9967

== ENCOUNTER 2022-11-01 22:49 | Emergency (ER) | payer OTHER ==
[2022-11-01 22:55] VITALS: TEMP 97.7; BMI 19.2
[2022-11-02] MEDS ORDERED: ACETAMINOPHEN 1000 MG/100 ML BAG IVPB ONE (00:44)
[2022-11-02] MEDS ORDERED: METOCLOPRAMIDE HCL INJECTION 10 MG/2 ML VIAL IVPUSH ONE (00:44)
[2022-11-02] MEDS ORDERED: LACTATED RINGERS SOLUTION 1000 ML INFUS.BAG IV ONE (00:44)
[2022-11-02] MEDS ORDERED: METOCLOPRAMIDE HCL INJECTION 10 MG/2 ML VIAL ONE (00:55)
[2022-11-02] MEDS ORDERED: ACETAMINOPHEN INJECTION 100 ML IVPB ONE (00:56)
[2022-11-02 01:07] LABS: BASO % 1.6 % (0-2.0); EOS % 8.1 % (0-4.5); HEMATOCRIT 25.1 % (32.4-45.2); HEMOGLOBIN 8.2 GM/dL (10.7-15.3); LYMPH % 46.5 % (8-40); MCH 23.7 pg (25.7-33.7); MCHC 32.8 g/dl (32.0-36.0); MEAN CELL VOLUME 72.2 fl (80-96); MEAN PLT VOLUME 8.4 fl (7.5-11.1); MONO % 8.4 % (3.8-10.2); NEUT % 35.4 % (42.8-82.8); PH,URINE 6.5 (5.0-8.0); PLATELET COUNT 274 10^3/uL (134-434); RBC 3.47 M/mm3 (3.60-5.2); RDW 17.7 % (11.6-15.6); URINE APPEARANCE CLEAR; URINE BILIRUBIN NEGATIVE (NEGATIVE); URINE COLOR YELLOW; URINE GLUCOSE (UA) NEGATIVE (NEGATIVE); URINE KETONE NEGATIVE (NEGATIVE); URINE LEUK ESTERASE NEGATIVE (NEGATIVE); URINE NITRITE NEGATIVE (NEGATIVE); URINE PROTEIN NEGATIVE (NEGATIVE); URINE UROBILINOGEN 0.2 mg/dL (0.2-1.0); WHITE BLOOD COUNT 6.1 K/mm3 (4.0-10.0)
[2022-11-02 01:10] LABS: HCG,QUALITATIVE URINE Negative
[2022-11-02 01:18] LABS: POTASSIUM 3.6 mmol/L (3.5-5.1)
[2022-11-02 01:20] LABS: CALCIUM 8.5 mg/dL (8.5-10.1)
[2022-11-02 01:21] LABS: ALBUMIN 3.4 g/dl (3.4-5.0); BLOOD UREA NITROGEN 13.9 mg/dL (7-18)
[2022-11-02 01:24] LABS: CREATININE 0.6 mg/dL (0.55-1.3)
[2022-11-02 01:25] LABS: TOT PROT 7.3 g/dl (6.4-8.2)
[2022-11-02 01:26] LABS: BILIRUBIN,TOTAL 0.2 mg/dL (0.2-1)
[2022-11-02 03:48] VITALS: BP 103/65; PULSE 67; RESP 14
== END 2022-11-02 03:59 | disposition home or self-care (01) ==
LOC: JER 22:49
PROC: 3E033NZ Introduction of Analgesics, Hypnotics, Sedatives into Peripheral Vein, Percutaneous Approach (ICD-10-PCS; principal; 2022-11-02)
PROC: 3E033GC Introduction of Other Therapeutic Substance into Peripheral Vein, Percutaneous Approach (ICD-10-PCS; 2022-11-02)
DX: R51.9 Headache, unspecified (principal); R09.81 Nasal congestion; R30.0 Dysuria; R05.9 Cough, unspecified; H53.71 Glare sensitivity; Z20.822 Contact with and (suspected) exposure to COVID-19
CPT/HCPCS: 0241U-QW; 36415; 80053; 81003; 84703; 85025; 87086; 99284-25

== ENCOUNTER 2022-12-08 19:19 | Emergency (ER) | payer OTHER ==
[2022-12-08 19:24] VITALS: TEMP 97.7; BMI 19.3
[2022-12-08 19:50] LABS: PH,URINE 6.5 (5.0-8.0); URINE APPEARANCE CLEAR; URINE BILIRUBIN NEGATIVE (NEGATIVE); URINE COLOR YELLOW; URINE GLUCOSE (UA) NEGATIVE (NEGATIVE); URINE KETONE TRACE (NEGATIVE); URINE LEUK ESTERASE NEGATIVE (NEGATIVE); URINE NITRITE NEGATIVE (NEGATIVE); URINE PROTEIN NEGATIVE (NEGATIVE)
[2022-12-08 19:53] LABS: HCG,QUALITATIVE URINE Negative
[2022-12-08] MEDS ORDERED: ACETAMINOPHEN 1000 MG/100 ML BAG IVPB ONE (20:10)
[2022-12-08] MEDS ORDERED: FAMOTIDINE 20 MG/50 ML IVPB 20 MG/50 ML MG IVPB ONE ×2 (20:12→20:44)
[2022-12-08] MEDS ORDERED: FLUCONAZOLE 50 MG TABLET PO ONE (20:25)
[2022-12-08] MEDS ORDERED: ACETAMINOPHEN INJECTION 100 ML IVPB ONE (20:29)
[2022-12-08 20:36] LABS: BASO % 1.1 % (0-2.0); EOS % 5.3 % (0-4.5); HEMATOCRIT 30.2 % (32.4-45.2); HEMOGLOBIN 9.7 GM/dL (10.7-15.3); LYMPH % 37.9 % (8-40); MCH 22.8 pg (25.7-33.7); MEAN CELL VOLUME 71.3 fl (80-96); MEAN PLT VOLUME 8.4 fl (7.5-11.1); MONO % 8.6 % (3.8-10.2); NEUT % 47.1 % (42.8-82.8); PLATELET COUNT 337 10^3/uL (134-434); RBC 4.24 M/mm3 (3.60-5.2); RDW 17.2 % (11.6-15.6); WHITE BLOOD COUNT 6.5 K/mm3 (4.0-10.0)
[2022-12-08] MEDS ORDERED: FLUCONAZOLE 150 MG TABLET PO ONE (20:44)
[2022-12-08 21:09] LABS: POTASSIUM 4.4 mmol/L (3.5-5.1)
[2022-12-08 21:10] LABS: ALBUMIN 3.9 g/dl (3.4-5.0); BLOOD UREA NITROGEN 11.5 mg/dL (7-18); CALCIUM 8.6 mg/dL (8.5-10.1)
[2022-12-08 21:13] LABS: CREATININE 0.6 mg/dL (0.55-1.3)
[2022-12-08 21:16] LABS: BILIRUBIN,TOTAL 0.2 mg/dL (0.2-1); TOT PROT 8.1 g/dl (6.4-8.2)
[2022-12-09 00:35] VITALS: BP 100/62; PULSE 61; RESP 14
== END 2022-12-09 00:37 | disposition home or self-care (01) ==
LOC: JER 19:19
PROC: 3E033GC Introduction of Other Therapeutic Substance into Peripheral Vein, Percutaneous Approach (ICD-10-PCS; principal; 2022-12-08)
PROC: 3E033NZ Introduction of Analgesics, Hypnotics, Sedatives into Peripheral Vein, Percutaneous Approach (ICD-10-PCS; 2022-12-08)
DX: R10.32 Left lower quadrant pain (principal); R30.0 Dysuria; R35.0 Frequency of micturition; R39.15 Urgency of urination; N94.89 Other specified conditions associated with female genital organs and menstrual cycle; L29.2 Pruritus vulvae; R10.31 Right lower quadrant pain; R11.0 Nausea
CPT/HCPCS: 36415; 74177-TC; 80053; 81003; 83690; 84703; 85025; 87086; 99285-25; Q9967

== ENCOUNTER 2023-12-12 16:45 | Emergency (ER) | payer OTHER ==
[2023-12-12 17:09] VITALS: BP 109/71; PULSE 67; RESP 20; TEMP 97.7; BMI 16.9
[2023-12-12 18:12] LABS: EOS % 5.4 % (0-4.5); HEMATOCRIT 34.3 % (32.4-45.2); HEMOGLOBIN 11.6 GM/dL (10.7-15.3); LYMPH % 28.6 % (8-40); MCH 28.3 pg (25.7-33.7); MCHC 33.7 g/dl (32.0-36.0); MEAN CELL VOLUME 84.1 fl (80-96); MEAN PLT VOLUME 8.3 fl (7.5-11.1); MONO % 7.6 % (3.8-10.2); NEUT % 57.4 % (42.8-82.8); PLATELET COUNT 204 10^3/uL (134-434); RBC 4.08 M/mm3 (3.60-5.2); WHITE BLOOD COUNT 7.1 K/mm3 (4.0-10.0)
[2023-12-12 18:19] LABS: PH,URINE 7.5 (5.0-8.0); URINE APPEARANCE TURBID; URINE BILIRUBIN NEGATIVE (NEGATIVE); URINE COLOR YELLOW; URINE GLUCOSE (UA) NEGATIVE (NEGATIVE); URINE KETONE NEGATIVE (NEGATIVE); URINE LEUK ESTERASE NEGATIVE (NEGATIVE); URINE NITRITE NEGATIVE (NEGATIVE); URINE PROTEIN NEGATIVE (NEGATIVE); URINE UROBILINOGEN 0.2 mg/dL (0.2-1.0)
[2023-12-12 18:39] LABS: POTASSIUM 4.1 mmol/L (3.5-5.1)
[2023-12-12] MEDS ORDERED: ACETAMINOPHEN 325 MG TABLET (FP) ONE (18:40)
[2023-12-12 18:41] LABS: CALCIUM 9.4 mg/dL (8.5-10.1)
[2023-12-12 18:42] LABS: ALBUMIN 3.6 g/dl (3.4-5.0); BLOOD UREA NITROGEN 9.4 mg/dL (7-18)
[2023-12-12] MEDS: ACETAMINOPHEN 500 MG TABLET (FP) PO ONE (18:42)
[2023-12-12 18:45] LABS: CREATININE 0.3 mg/dL (0.55-1.3)
[2023-12-12 18:46] LABS: BILIRUBIN,TOTAL 0.3 mg/dL (0.2-1)
[2023-12-12 18:47] LABS: TOT PROT 7.4 g/dl (6.4-8.2)
== END 2023-12-12 19:47 | disposition home or self-care (01) ==
LOC: JER 16:45
DX: O09.521 Supervision of elderly multigravida, first trimester (principal); O26.891 Other specified pregnancy related conditions, first trimester; R10.30 Lower abdominal pain, unspecified; Z3A.14 14 weeks gestation of pregnancy
CPT/HCPCS: 36415; 80053; 81003; 85025; 86850; 86900; 86901; 87086; 99283-25

== ENCOUNTER 2024-08-02 15:44 | Emergency (ER) | payer OTHER ==
[2024-08-02 15:56] VITALS: BP 113/72; PULSE 71; RESP 16; TEMP 98.5; BMI 19.3
[2024-08-02 16:38] LABS: PH,URINE 7.5 (5.0-8.0); URINE APPEARANCE Error; URINE BILIRUBIN NEGATIVE (NEGATIVE); URINE COLOR YELLOW; URINE GLUCOSE (UA) NEGATIVE (NEGATIVE); URINE KETONE NEGATIVE (NEGATIVE); URINE LEUK ESTERASE NEGATIVE (NEGATIVE); URINE NITRITE NEGATIVE (NEGATIVE); URINE PROTEIN NEGATIVE (NEGATIVE)
[2024-08-02 16:41] LABS: HCG,QUALITATIVE URINE Negative
[2024-08-02 17:09] LABS: ABSOLUTE IMMATURE GRANULOCYTES 0.02 x10^3/uL (0.0-0.031); BASOPHILS # 0.04 x10^3/uL (0.01-0.08); EOSINOPHIL % 7.6 % (0.7-5.8); EOSINOPHILS # 0.56 x10^3/uL (0.04-0.36); HEMATOCRIT 39.4 % (34.1-44.9); HEMOGLOBIN 12.9 g/dL (11.2-15.7); MCHC 32.7 g/dl (32.2-35.5); MEAN CELL VOLUME 87.4 fl (79.4-94.8); MEAN PLT VOLUME 10.5 fl (9.4-12.3); MONOCYTE # 0.54 x10^3/uL (0.24-0.86); MONOCYTE % 7.3 % (4.7-12.5); PLATELET COUNT 251 x10^3/uL (182-369); RDW 12.7 % (12.1-16.8)
[2024-08-02 17:25] LABS: POTASSIUM 3.9 mmol/L (3.5-5.1)
[2024-08-02 17:29] LABS: ALBUMIN 4.1 g/dl (3.4-5.0); CALCIUM 9.9 mg/dL (8.5-10.1); MAGNESIUM 2.1 mg/dL (1.8-2.4)
[2024-08-02 17:31] LABS: CREATININE 0.6 mg/dL (0.55-1.3); PHOSPHOROUS 3.9 mg/dL (2.5-4.9)
[2024-08-02 17:32] LABS: BILIRUBIN,TOTAL 0.5 mg/dL (0.2-1); TOT PROT 7.7 g/dl (6.4-8.2)
[2024-08-02] MEDS ORDERED: KETOROLAC TROMETHAMINE 30 MG/1 ML VIAL ONE (17:55)
[2024-08-02] MEDS: KETOROLAC TROMETHAMINE 30 MG/1 ML VIAL IM ONE (18:01)
== END 2024-08-02 18:45 | disposition home or self-care (01) ==
LOC: JER 15:44
PROC: 3E0233Z Introduction of Anti-inflammatory into Muscle, Percutaneous Approach (ICD-10-PCS; principal; 2024-08-02)
DX: N94.89 Other specified conditions associated with female genital organs and menstrual cycle (principal); R10.13 Epigastric pain; R53.1 Weakness; R30.0 Dysuria; R53.83 Other fatigue; M54.6 Pain in thoracic spine; M25.519 Pain in unspecified shoulder; R68.83 Chills (without fever)
CPT/HCPCS: 36415; 80053; 81003; 83690; 83735; 84100; 84703; 85025; 86850; 86900; 86901; 87086; 99284-25